=== PATIENT | female | born 1940 | race Caucasian/White ===

== ENCOUNTER 2016-11-23 17:22 | Inpatient (IN) | payer MEDICARE, OTHER ==
[2016-11-23] MEDS ORDERED: SODIUM CHLORIDE 0.9% 1,000 ML IV ONE (18:04)
[2016-11-23] MEDS ORDERED: OSELTAMIVIR 75 MG CAPSULE PO STA (19:39)
[2016-11-23] MEDS ORDERED: OSELTAMIVIR 75 MG CAPSULE PO ONE (19:44)
[2016-11-23] MEDS ORDERED: HALOPERIDOL 5 MG/ML VIAL IM SCH (23:07)
[2016-11-23] MEDS ORDERED: ONDANSETRON ODT 4 MG TABLET TL PRN (23:07)
[2016-11-23] MEDS ORDERED: PROCHLORPERAZINE 10 MG/2 ML VIAL IVP PRN (23:07)
[2016-11-23] MEDS ORDERED: ACETAMINOPHEN 325 MG TABLET PO PRN (23:07)
[2016-11-23] MEDS ORDERED: ONDANSETRON 4 MG/2 ML VIAL IVP PRN (23:07)
[2016-11-24] MEDS: SODIUM CHLORIDE 0.9% 1,000 ML IV SCH ×2 (00:05→02:18)
[2016-11-24] MEDS: MIRTAZAPINE 15 MG TABLET PO SCH ×2 (00:05→22:05)
[2016-11-24] MEDS: GABAPENTIN 300 MG CAPSULE PO SCH ×4 (00:05→22:06)
[2016-11-24] MEDS: NORTRIPTYLINE 10 MG CAPSULE PO SCH ×2 (00:06→22:05)
[2016-11-24] MEDS: LOSARTAN 50 MG TABLET PO SCH ×3 (00:06→22:05)
[2016-11-24] MEDS: SODIUM CHLORIDE FLUSH 0.9% 10 ML SYRINGE IVP SCH ×4 (00:10→22:07)
[2016-11-24] MEDS: ALBUTEROL NEB 2.5 MG/3 ML INH SCH ×6 (01:31→23:12)
[2016-11-24] MEDS: AZITHROMYCIN INJ 500 MG in SODIUM CHLORIDE 0.9% 250 ML IV SCH (08:27)
[2016-11-24] MEDS: cefTRIAXone 2 GM in SODIUM CHLORIDE 0.9% MINIBAG 100 ML IV SCH (08:27)
[2016-11-24] MEDS: ASCORBIC ACID CHEW 500 MG TABLET PO SCH (08:28)
[2016-11-24] MEDS: ATORVASTATIN 40 MG TABLET PO SCH (08:28)
[2016-11-24] MEDS: METOPROLOL TARTRATE 50 MG TABLET PO SCH ×2 (08:28→22:06)
[2016-11-24] MEDS: OSELTAMIVIR 75 MG CAPSULE PO SCH ×3 (08:29→22:07)
[2016-11-24] MEDS: SACCHAROMYCES BOULARDII 250 MG CAPSULE PO SCH ×2 (08:29→16:38)
[2016-11-24] MEDS: POTASSIUM CHLORIDE 20 MEQ TABLET PO SCH (08:29)
[2016-11-24] MEDS: ASPIRIN EC 81 MG TABLET PO SCH (08:29)
[2016-11-24] MEDS: CHOLECALCIFEROL 1,000 UNIT TABLET PO SCH (08:29)
[2016-11-24] MEDS: amLODIPine 5 MG TABLET PO SCH (08:42)
[2016-11-24] MEDS: POLYETHYLENE GLYCOL 3350 17 GM PACKET PO SCH (08:42)
[2016-11-24] MEDS ORDERED: METOPROLOL TARTRATE 50 MG TABLET PO SCH (09:00)
[2016-11-24] MEDS: HYDROcod/ACETAM 10 MG/325 MG TABLET PO PRN (16:38)
[2016-11-24] MEDS ORDERED: risperiDONE 1 MG/ML SOLUTION PO SCH (21:00)
[2016-11-24] MEDS: risperiDONE 0.25 MG TABLET PO SCH (22:06)
[2016-11-25] MEDS: HYDROcod/ACETAM 10 MG/325 MG TABLET PO PRN (00:54)
[2016-11-25] MEDS: GABAPENTIN 300 MG CAPSULE PO SCH ×3 (07:04→21:28)
[2016-11-25] MEDS: SODIUM CHLORIDE FLUSH 0.9% 10 ML SYRINGE IVP SCH ×3 (07:06→21:28)
[2016-11-25] MEDS: cefTRIAXone 2 GM in SODIUM CHLORIDE 0.9% MINIBAG 100 ML IV SCH (09:01)
[2016-11-25] MEDS: ASCORBIC ACID CHEW 500 MG TABLET PO SCH (09:02)
[2016-11-25] MEDS: METOPROLOL TARTRATE 50 MG TABLET PO SCH ×2 (09:02→20:20)
[2016-11-25] MEDS: AZITHROMYCIN INJ 500 MG in SODIUM CHLORIDE 0.9% 250 ML IV SCH (09:02)
[2016-11-25] MEDS: ATORVASTATIN 40 MG TABLET PO SCH (09:05)
[2016-11-25] MEDS: CHOLECALCIFEROL 1,000 UNIT TABLET PO SCH (09:05)
[2016-11-25] MEDS: amLODIPine 5 MG TABLET PO SCH (09:05)
[2016-11-25] MEDS: ASPIRIN EC 81 MG TABLET PO SCH (09:05)
[2016-11-25] MEDS: POTASSIUM CHLORIDE 20 MEQ TABLET PO SCH (09:05)
[2016-11-25] MEDS: SACCHAROMYCES BOULARDII 250 MG CAPSULE PO SCH ×2 (09:05→16:38)
[2016-11-25] MEDS: LOSARTAN 50 MG TABLET PO SCH ×2 (09:05→20:27)
[2016-11-25] MEDS: POLYETHYLENE GLYCOL 3350 17 GM PACKET PO SCH (09:05)
[2016-11-25] MEDS: CIPROFLOXACIN 250 MG TABLET PO SCH ×2 (13:12→20:20)
[2016-11-25] MEDS: HYDROcod/ACETAM 5/325 MG TABLET PO PRN ×2 (16:38→20:22)
[2016-11-25] MEDS: OSELTAMIVIR 75 MG CAPSULE PO SCH (20:19)
[2016-11-25] MEDS: NORTRIPTYLINE 10 MG CAPSULE PO SCH (20:20)
[2016-11-25] MEDS: risperiDONE 0.25 MG TABLET PO SCH (20:21)
[2016-11-25] MEDS: MIRTAZAPINE 15 MG TABLET PO SCH (20:27)
[2016-11-26] MEDS: SODIUM CHLORIDE FLUSH 0.9% 10 ML SYRINGE IVP SCH ×3 (06:05→20:53)
[2016-11-26] MEDS: GABAPENTIN 300 MG CAPSULE PO SCH ×3 (06:18→21:04)
[2016-11-26] MEDS: amLODIPine 5 MG TABLET PO SCH (08:58)
[2016-11-26] MEDS: SACCHAROMYCES BOULARDII 250 MG CAPSULE PO SCH ×2 (08:58→16:53)
[2016-11-26] MEDS: POTASSIUM CHLORIDE 20 MEQ TABLET PO SCH (08:58)
[2016-11-26] MEDS: ASPIRIN EC 81 MG TABLET PO SCH (08:59)
[2016-11-26] MEDS: CHOLECALCIFEROL 1,000 UNIT TABLET PO SCH (08:59)
[2016-11-26] MEDS: CIPROFLOXACIN 250 MG TABLET PO SCH (08:59)
[2016-11-26] MEDS: ASCORBIC ACID CHEW 500 MG TABLET PO SCH (08:59)
[2016-11-26] MEDS: ATORVASTATIN 40 MG TABLET PO SCH (08:59)
[2016-11-26] MEDS: OSELTAMIVIR 75 MG CAPSULE PO SCH ×2 (09:00→20:52)
[2016-11-26] MEDS: POLYETHYLENE GLYCOL 3350 17 GM PACKET PO SCH (09:00)
[2016-11-26] MEDS: LOSARTAN 50 MG TABLET PO SCH ×2 (09:00→20:52)
[2016-11-26] MEDS ORDERED: AZITHROMYCIN 250 MG TABLET PO SCH (09:00)
[2016-11-26] MEDS: METOPROLOL TARTRATE 50 MG TABLET PO SCH ×2 (09:03→20:52)
[2016-11-26] MEDS: HYDROcod/ACETAM 5/325 MG TABLET PO PRN ×2 (09:11→14:31)
[2016-11-26] MEDS: IPRATROPIUM/ALBUTEROL 3 ML NEB INH PRN (10:29)
[2016-11-26] MEDS: NORTRIPTYLINE 10 MG CAPSULE PO SCH (20:52)
[2016-11-26] MEDS: risperiDONE 0.25 MG TABLET PO SCH (20:52)
[2016-11-26] MEDS: MIRTAZAPINE 15 MG TABLET PO SCH (20:52)
[2016-11-26] MEDS: HYDROcod/ACETAM 10 MG/325 MG TABLET PO PRN (23:32)
[2016-11-27] MEDS: SODIUM CHLORIDE FLUSH 0.9% 10 ML SYRINGE IVP SCH ×3 (06:35→20:12)
[2016-11-27] MEDS: GABAPENTIN 300 MG CAPSULE PO SCH ×3 (06:35→21:17)
[2016-11-27] MEDS: POTASSIUM CHLORIDE 20 MEQ TABLET PO SCH (08:58)
[2016-11-27] MEDS: ATORVASTATIN 40 MG TABLET PO SCH (08:59)
[2016-11-27] MEDS: SACCHAROMYCES BOULARDII 250 MG CAPSULE PO SCH ×2 (08:59→16:15)
[2016-11-27] MEDS: CHOLECALCIFEROL 1,000 UNIT TABLET PO SCH (08:59)
[2016-11-27] MEDS: ASPIRIN EC 81 MG TABLET PO SCH (08:59)
[2016-11-27] MEDS: ASCORBIC ACID CHEW 500 MG TABLET PO SCH (08:59)
[2016-11-27] MEDS: amLODIPine 5 MG TABLET PO SCH (08:59)
[2016-11-27] MEDS: POLYETHYLENE GLYCOL 3350 17 GM PACKET PO SCH (09:00)
[2016-11-27] MEDS: OSELTAMIVIR 75 MG CAPSULE PO SCH ×2 (09:00→20:12)
[2016-11-27] MEDS: METOPROLOL TARTRATE 50 MG TABLET PO SCH ×2 (09:00→20:12)
[2016-11-27] MEDS: LOSARTAN 50 MG TABLET PO SCH ×2 (09:00→20:11)
[2016-11-27] MEDS: SODIUM CHLORIDE FLUSH 0.9% 10 ML SYRINGE IVP PRN (12:09)
[2016-11-27] MEDS: guaiFENesin/CODEINE 5 ML UDC PO PRN ×2 (15:00→20:17)
[2016-11-27] MEDS: IPRATROPIUM/ALBUTEROL 3 ML NEB INH PRN (16:00)
[2016-11-27] MEDS: HYDROcod/ACETAM 5/325 MG TABLET PO PRN (18:43)
[2016-11-27] MEDS: risperiDONE 0.25 MG TABLET PO SCH (20:12)
[2016-11-27] MEDS: MIRTAZAPINE 15 MG TABLET PO SCH (20:12)
[2016-11-27] MEDS: NORTRIPTYLINE 10 MG CAPSULE PO SCH (20:12)
[2016-11-27] MEDS: SODIUM CHLORIDE 0.9% 1,000 ML IV SCH (20:44)
[2016-11-28] MEDS: SODIUM CHLORIDE 0.9% 1,000 ML IV SCH ×3 (04:22→22:39)
[2016-11-28] MEDS: GABAPENTIN 300 MG CAPSULE PO SCH ×3 (05:56→21:37)
[2016-11-28] MEDS: SODIUM CHLORIDE FLUSH 0.9% 10 ML SYRINGE IVP SCH ×3 (06:02→21:41)
[2016-11-28] MEDS: ASCORBIC ACID CHEW 500 MG TABLET PO SCH (08:59)
[2016-11-28] MEDS: ASPIRIN EC 81 MG TABLET PO SCH (08:59)
[2016-11-28] MEDS: POTASSIUM CHLORIDE 20 MEQ TABLET PO SCH (08:59)
[2016-11-28] MEDS: SACCHAROMYCES BOULARDII 250 MG CAPSULE PO SCH ×2 (08:59→16:18)
[2016-11-28] MEDS: ATORVASTATIN 40 MG TABLET PO SCH (08:59)
[2016-11-28] MEDS: OSELTAMIVIR 75 MG CAPSULE PO SCH ×2 (09:00→21:37)
[2016-11-28] MEDS: CHOLECALCIFEROL 1,000 UNIT TABLET PO SCH (09:00)
[2016-11-28] MEDS: POLYETHYLENE GLYCOL 3350 17 GM PACKET PO SCH (09:00)
[2016-11-28] MEDS: LOSARTAN 50 MG TABLET PO SCH ×2 (09:01→21:36)
[2016-11-28] MEDS: amLODIPine 5 MG TABLET PO SCH (09:01)
[2016-11-28] MEDS: METOPROLOL TARTRATE 50 MG TABLET PO SCH ×2 (09:02→21:41)
[2016-11-28] MEDS: guaiFENesin/CODEINE 5 ML UDC PO PRN ×2 (09:03→20:08)
[2016-11-28] MEDS: IPRATROPIUM/ALBUTEROL 3 ML NEB INH PRN (15:45)
[2016-11-28] MEDS: HYDROcod/ACETAM 5/325 MG TABLET PO PRN (16:18)
[2016-11-28] MEDS: NORTRIPTYLINE 10 MG CAPSULE PO SCH (21:37)
[2016-11-28] MEDS: MIRTAZAPINE 15 MG TABLET PO SCH (21:38)
[2016-11-28] MEDS: risperiDONE 0.25 MG TABLET PO SCH (21:38)
[2016-11-28] MEDS: SENNA 8.6 MG TABLET PO SCH (21:41)
[2016-11-28] MEDS: HYDROcod/ACETAM 10 MG/325 MG TABLET PO PRN (21:57)
[2016-11-29] MEDS: SENNA 8.6 MG TABLET PO SCH ×2 (06:22→13:34)
[2016-11-29] MEDS: GABAPENTIN 300 MG CAPSULE PO SCH ×3 (06:22→21:57)
[2016-11-29] MEDS: SODIUM CHLORIDE 0.9% 1,000 ML IV SCH ×3 (07:19→21:57)
[2016-11-29] MEDS: SODIUM CHLORIDE FLUSH 0.9% 10 ML SYRINGE IVP SCH ×3 (07:19→21:59)
[2016-11-29] MEDS: amLODIPine 5 MG TABLET PO SCH (09:14)
[2016-11-29] MEDS: DOCUSATE SODIUM 250 MG CAPSULE PO SCH (09:14)
[2016-11-29] MEDS: SACCHAROMYCES BOULARDII 250 MG CAPSULE PO SCH ×2 (09:15→17:55)
[2016-11-29] MEDS: CHOLECALCIFEROL 1,000 UNIT TABLET PO SCH (09:15)
[2016-11-29] MEDS: ASPIRIN EC 81 MG TABLET PO SCH (09:15)
[2016-11-29] MEDS: LOSARTAN 50 MG TABLET PO SCH ×2 (09:16→21:57)
[2016-11-29] MEDS: POTASSIUM CHLORIDE 20 MEQ TABLET PO SCH (09:16)
[2016-11-29] MEDS: ATORVASTATIN 40 MG TABLET PO SCH (09:16)
[2016-11-29] MEDS: ASCORBIC ACID CHEW 500 MG TABLET PO SCH (09:17)
[2016-11-29] MEDS: METOPROLOL TARTRATE 50 MG TABLET PO SCH ×2 (09:17→21:57)
[2016-11-29] MEDS: POLYETHYLENE GLYCOL 3350 17 GM PACKET PO SCH (09:56)
[2016-11-29] MEDS: risperiDONE 0.25 MG TABLET PO SCH (21:57)
[2016-11-29] MEDS: NORTRIPTYLINE 10 MG CAPSULE PO SCH (21:58)
[2016-11-29] MEDS: MIRTAZAPINE 15 MG TABLET PO SCH (21:58)
[2016-11-29] MEDS ORDERED: LORazepam 2 MG/ML SYRINGE IVP STA (23:34)
[2016-11-30] MEDS ORDERED: HALOPERIDOL 5 MG/ML VIAL IM ONE (00:04)
[2016-11-30] MEDS ORDERED: HALOPERIDOL 5 MG/ML VIAL ONE (00:06)
[2016-11-30] MEDS ORDERED: HALOPERIDOL 5 MG/ML VIAL IM SCH (00:52)
[2016-11-30] MEDS: SODIUM CHLORIDE 0.9% 1,000 ML IV SCH ×3 (05:43→21:47)
[2016-11-30] MEDS: GABAPENTIN 300 MG CAPSULE PO SCH ×3 (06:45→21:45)
[2016-11-30] MEDS: SODIUM CHLORIDE FLUSH 0.9% 10 ML SYRINGE IVP SCH ×3 (06:47→21:45)
[2016-11-30] MEDS: IPRATROPIUM/ALBUTEROL 3 ML NEB INH PRN ×2 (09:33→16:56)
[2016-11-30] MEDS: FORMOTEROL FUMARATE NEB 20 MCG/2 ML INH SCH ×2 (09:33→16:56)
[2016-11-30] MEDS: BUDESONIDE 0.5 MG/2 ML NEB INH SCH ×2 (09:33→16:56)
[2016-11-30] MEDS: IPRATROPIUM 0.2 MG/ML NEB INH SCH ×3 (09:33→21:00)
[2016-11-30] MEDS: POLYETHYLENE GLYCOL 3350 17 GM PACKET PO SCH (10:07)
[2016-11-30] MEDS: DOCUSATE SODIUM 250 MG CAPSULE PO SCH (10:07)
[2016-11-30] MEDS: ASCORBIC ACID CHEW 500 MG TABLET PO SCH (10:08)
[2016-11-30] MEDS: LOSARTAN 50 MG TABLET PO SCH ×2 (10:08→20:12)
[2016-11-30] MEDS: amLODIPine 5 MG TABLET PO SCH (10:08)
[2016-11-30] MEDS: POTASSIUM CHLORIDE 20 MEQ TABLET PO SCH (10:08)
[2016-11-30] MEDS: ATORVASTATIN 40 MG TABLET PO SCH (10:09)
[2016-11-30] MEDS: CHOLECALCIFEROL 1,000 UNIT TABLET PO SCH (10:09)
[2016-11-30] MEDS: SACCHAROMYCES BOULARDII 250 MG CAPSULE PO SCH ×2 (10:09→16:33)
[2016-11-30] MEDS: METOPROLOL TARTRATE 50 MG TABLET PO SCH ×2 (10:09→20:12)
[2016-11-30] MEDS: ASPIRIN EC 81 MG TABLET PO SCH (10:09)
[2016-11-30] MEDS ORDERED: MIN OIL/DIMETHICON/COCONUT OIL 92 GM TUBE TOP ONE (14:06)
[2016-11-30] MEDS ORDERED: ZINC OXIDE 20% OINT 28.35 GM TUBE TOP ONE (14:07)
[2016-11-30] MEDS: NORTRIPTYLINE 10 MG CAPSULE PO SCH (20:12)
[2016-11-30] MEDS: risperiDONE 0.25 MG TABLET PO SCH (20:12)
[2016-11-30] MEDS: MIRTAZAPINE 15 MG TABLET PO SCH (20:13)
[2016-12-01] MEDS: guaiFENesin/CODEINE 5 ML UDC PO PRN (04:36)
[2016-12-01] MEDS: GABAPENTIN 300 MG CAPSULE PO SCH ×3 (06:12→21:38)
[2016-12-01] MEDS: IPRATROPIUM 0.2 MG/ML NEB INH SCH ×3 (07:03→20:35)
[2016-12-01] MEDS: BUDESONIDE 0.5 MG/2 ML NEB INH SCH ×2 (08:10→20:35)
[2016-12-01] MEDS: IPRATROPIUM/ALBUTEROL 3 ML NEB INH PRN ×2 (08:10→14:00)
[2016-12-01] MEDS: FORMOTEROL FUMARATE NEB 20 MCG/2 ML INH SCH ×2 (08:10→20:35)
[2016-12-01] MEDS ORDERED: SENNA 8.6 MG TABLET PO ONE (08:30)
[2016-12-01] MEDS: SODIUM CHLORIDE 0.9% 1,000 ML IV SCH ×3 (08:38→19:15)
[2016-12-01] MEDS: DOCUSATE SODIUM 250 MG CAPSULE PO SCH (09:05)
[2016-12-01] MEDS: ASCORBIC ACID CHEW 500 MG TABLET PO SCH (09:06)
[2016-12-01] MEDS: POTASSIUM CHLORIDE 20 MEQ TABLET PO SCH (09:06)
[2016-12-01] MEDS: ASPIRIN EC 81 MG TABLET PO SCH (09:06)
[2016-12-01] MEDS: LOSARTAN 50 MG TABLET PO SCH ×2 (09:06→20:36)
[2016-12-01] MEDS: CHOLECALCIFEROL 1,000 UNIT TABLET PO SCH (09:06)
[2016-12-01] MEDS: ATORVASTATIN 40 MG TABLET PO SCH (09:07)
[2016-12-01] MEDS: SACCHAROMYCES BOULARDII 250 MG CAPSULE PO SCH ×2 (09:07→18:21)
[2016-12-01] MEDS: amLODIPine 5 MG TABLET PO SCH (09:07)
[2016-12-01] MEDS: POLYETHYLENE GLYCOL 3350 17 GM PACKET PO SCH (09:08)
[2016-12-01] MEDS: METOPROLOL TARTRATE 50 MG TABLET PO SCH ×2 (09:08→20:36)
[2016-12-01] MEDS: SODIUM CHLORIDE FLUSH 0.9% 10 ML SYRINGE IVP SCH ×3 (09:09→22:58)
[2016-12-01] MEDS: HYDROcod/ACETAM 10 MG/325 MG TABLET PO PRN ×2 (12:05→21:38)
[2016-12-01] MEDS: FUROSEMIDE 20 MG/2 ML VIAL IVP SCH (15:40)
[2016-12-01] MEDS: MIRTAZAPINE 15 MG TABLET PO SCH (20:35)
[2016-12-01] MEDS: NORTRIPTYLINE 10 MG CAPSULE PO SCH (20:35)
[2016-12-01] MEDS: risperiDONE 0.25 MG TABLET PO SCH (20:36)
[2016-12-02] MEDS: guaiFENesin/CODEINE 5 ML UDC PO PRN ×3 (00:44→18:17)
[2016-12-02] MEDS: SODIUM CHLORIDE 0.9% 1,000 ML IV SCH ×3 (03:17→22:49)
[2016-12-02] MEDS: IPRATROPIUM 0.2 MG/ML NEB INH SCH (04:05)
[2016-12-02] MEDS: GABAPENTIN 300 MG CAPSULE PO SCH ×3 (05:22→21:22)
[2016-12-02] MEDS: ZINC OXIDE 20% OINT 28.35 GM TUBE TOP PRN (05:31)
[2016-12-02] MEDS: SODIUM CHLORIDE FLUSH 0.9% 10 ML SYRINGE IVP SCH ×3 (05:49→22:49)
[2016-12-02] MEDS: FUROSEMIDE 20 MG/2 ML VIAL IVP SCH ×2 (06:54→13:17)
[2016-12-02] MEDS: POLYETHYLENE GLYCOL 3350 17 GM PACKET PO SCH (08:28)
[2016-12-02] MEDS: CHOLECALCIFEROL 1,000 UNIT TABLET PO SCH (08:29)
[2016-12-02] MEDS: DOCUSATE SODIUM 250 MG CAPSULE PO SCH (08:29)
[2016-12-02] MEDS: ASPIRIN EC 81 MG TABLET PO SCH (08:29)
[2016-12-02] MEDS: POTASSIUM CHLORIDE 20 MEQ TABLET PO SCH (08:29)
[2016-12-02] MEDS: METOPROLOL TARTRATE 50 MG TABLET PO SCH ×2 (08:29→21:20)
[2016-12-02] MEDS: amLODIPine 5 MG TABLET PO SCH (08:30)
[2016-12-02] MEDS: HYDROcod/ACETAM 10 MG/325 MG TABLET PO PRN ×3 (08:30→18:16)
[2016-12-02] MEDS: SACCHAROMYCES BOULARDII 250 MG CAPSULE PO SCH ×2 (08:41→16:32)
[2016-12-02] MEDS: ATORVASTATIN 40 MG TABLET PO SCH (08:46)
[2016-12-02] MEDS: LOSARTAN 50 MG TABLET PO SCH ×2 (08:47→21:22)
[2016-12-02] MEDS: ASCORBIC ACID CHEW 500 MG TABLET PO SCH (08:47)
[2016-12-02] MEDS: FORMOTEROL FUMARATE NEB 20 MCG/2 ML INH SCH ×2 (09:00→19:45)
[2016-12-02] MEDS: BUDESONIDE 0.5 MG/2 ML NEB INH SCH ×2 (09:00→19:45)
[2016-12-02] MEDS: IPRATROPIUM/ALBUTEROL 3 ML NEB INH PRN ×2 (09:00→12:50)
[2016-12-02] MEDS: CEFEPIME 2 GM in SODIUM CHLORIDE 0.9% MINIBAG 100 ML IV SCH ×2 (11:57→22:49)
[2016-12-02] MEDS: POTASSIUM CHLORIDE 10 MEQ CAPSULE PO SCH (16:33)
[2016-12-02] MEDS ORDERED: POTASSIUM CHLORIDE 10 MEQ CAPSULE PO SCH (17:00)
[2016-12-02] MEDS: risperiDONE 0.25 MG TABLET PO SCH (21:18)
[2016-12-02] MEDS: NORTRIPTYLINE 10 MG CAPSULE PO SCH (21:18)
[2016-12-02] MEDS: MIRTAZAPINE 15 MG TABLET PO SCH (21:19)
[2016-12-03] MEDS: guaiFENesin/CODEINE 5 ML UDC PO PRN (01:26)
[2016-12-03] MEDS: NYSTATIN CREAM 15 GM TUBE TOP SCH ×4 (01:26→23:38)
[2016-12-03] MEDS: SODIUM CHLORIDE 0.9% 1,000 ML IV SCH ×3 (02:29→23:10)
[2016-12-03] MEDS: SODIUM CHLORIDE FLUSH 0.9% 10 ML SYRINGE IVP SCH ×3 (06:33→23:10)
[2016-12-03] MEDS: GABAPENTIN 300 MG CAPSULE PO SCH ×3 (06:44→22:31)
[2016-12-03] MEDS: FUROSEMIDE 20 MG/2 ML VIAL IVP SCH ×2 (06:45→13:41)
[2016-12-03] MEDS: FORMOTEROL FUMARATE NEB 20 MCG/2 ML INH SCH ×2 (07:12→21:10)
[2016-12-03] MEDS: BUDESONIDE 0.5 MG/2 ML NEB INH SCH ×2 (07:12→21:10)
[2016-12-03] MEDS: IPRATROPIUM/ALBUTEROL 3 ML NEB INH PRN ×2 (07:12→21:10)
[2016-12-03] MEDS ORDERED: ACETAMINOPHEN 650 MG SUPP PR PRN (08:24)
[2016-12-03] MEDS: CEFEPIME 2 GM in SODIUM CHLORIDE 0.9% MINIBAG 100 ML IV SCH ×2 (08:31→21:03)
[2016-12-03] MEDS: ATORVASTATIN 40 MG TABLET PO SCH (13:46)
[2016-12-03] MEDS: ASCORBIC ACID CHEW 500 MG TABLET PO SCH (13:46)
[2016-12-03] MEDS: CHOLECALCIFEROL 1,000 UNIT TABLET PO SCH (13:46)
[2016-12-03] MEDS: SACCHAROMYCES BOULARDII 250 MG CAPSULE PO SCH ×2 (13:46→18:10)
[2016-12-03] MEDS: ASPIRIN EC 81 MG TABLET PO SCH (13:46)
[2016-12-03] MEDS: amLODIPine 5 MG TABLET PO SCH (13:46)
[2016-12-03] MEDS: POTASSIUM CHLORIDE 10 MEQ CAPSULE PO SCH ×2 (13:46→18:10)
[2016-12-03] MEDS: POLYETHYLENE GLYCOL 3350 17 GM PACKET PO SCH (13:47)
[2016-12-03] MEDS: LOSARTAN 50 MG TABLET PO SCH ×2 (13:47→22:29)
[2016-12-03] MEDS: DOCUSATE SODIUM 250 MG CAPSULE PO SCH (13:47)
[2016-12-03] MEDS: METOPROLOL TARTRATE 50 MG TABLET PO SCH ×2 (13:47→22:29)
[2016-12-03] MEDS: ZINC OXIDE 20% OINT 28.35 GM TUBE TOP PRN (13:51)
[2016-12-03] MEDS: METOPROLOL 5 MG/5 ML VIAL IVP PRN ×2 (17:49→23:58)
[2016-12-03] MEDS ORDERED: HALOPERIDOL 5 MG/ML VIAL IM ONE (19:00)
[2016-12-03] MEDS: MIRTAZAPINE 15 MG TABLET PO SCH (22:30)
[2016-12-03] MEDS: NORTRIPTYLINE 10 MG CAPSULE PO SCH (22:31)
[2016-12-03] MEDS: risperiDONE 0.25 MG TABLET PO SCH (22:31)
[2016-12-03] MEDS ORDERED: FUROSEMIDE 40 MG/4 ML VIAL IVP STA (22:36)
[2016-12-03] MEDS ORDERED: MAGNESIUM SULFATE 5 GM/10 ML VIAL IV STA (23:28)
[2016-12-03] MEDS: MAGNESIUM SULFATE 2 GRAM 50 ML IV SCH (23:43)
[2016-12-03] MEDS: SODIUM CHLORIDE FLUSH 0.9% 10 ML SYRINGE IVP PRN (23:58)
[2016-12-04] MEDS: guaiFENesin/CODEINE 5 ML UDC PO PRN (00:01)
[2016-12-04] MEDS: MAGNESIUM SULFATE 2 GRAM 50 ML IV SCH (01:11)
[2016-12-04] MEDS ORDERED: PIPERACILLIN/TAZOBACTAM 4.5 GM in SODIUM CHLORIDE 0.9% MINIBAG 100 ML IV SCH ×5 (02:30→06:00)
[2016-12-04] MEDS ORDERED: VANCOMYCIN INJ 1 GM in SODIUM CHLORIDE 0.9% 250 ML IV SCH (03:00)
[2016-12-04] MEDS ORDERED: VANCOMYCIN PER PHARMACY 1 GM in SODIUM CHLORIDE 0.9% 250 ML IV SCH (03:00)
[2016-12-04] MEDS ORDERED: IOPAMIDOL-300 100 ML VIAL IVP ONE (03:11)
[2016-12-04] MEDS: SENNA 8.6 MG TABLET PO SCH ×3 (06:14→22:03)
[2016-12-04] MEDS: GABAPENTIN 300 MG CAPSULE PO SCH ×3 (06:14→21:52)
[2016-12-04] MEDS: SODIUM CHLORIDE FLUSH 0.9% 10 ML SYRINGE IVP SCH ×3 (06:14→19:36)
[2016-12-04] MEDS: FUROSEMIDE 20 MG/2 ML VIAL IVP SCH ×2 (06:28→13:37)
[2016-12-04] MEDS: NYSTATIN CREAM 15 GM TUBE TOP SCH ×3 (06:29→21:51)
[2016-12-04] MEDS: DOCUSATE SODIUM 250 MG CAPSULE PO SCH ×2 (08:43→09:25)
[2016-12-04] MEDS: ASPIRIN EC 81 MG TABLET PO SCH (08:43)
[2016-12-04] MEDS: ATORVASTATIN 40 MG TABLET PO SCH (08:43)
[2016-12-04] MEDS: ASCORBIC ACID CHEW 500 MG TABLET PO SCH (08:44)
[2016-12-04] MEDS: METOPROLOL TARTRATE 50 MG TABLET PO SCH ×2 (08:44→21:52)
[2016-12-04] MEDS: amLODIPine 5 MG TABLET PO SCH (08:44)
[2016-12-04] MEDS: LOSARTAN 50 MG TABLET PO SCH ×2 (08:44→21:52)
[2016-12-04] MEDS: POTASSIUM CHLORIDE 10 MEQ CAPSULE PO SCH ×2 (09:24→19:37)
[2016-12-04] MEDS: CHOLECALCIFEROL 1,000 UNIT TABLET PO SCH (09:25)
[2016-12-04] MEDS: SACCHAROMYCES BOULARDII 250 MG CAPSULE PO SCH ×2 (09:25→19:37)
[2016-12-04] MEDS: POLYETHYLENE GLYCOL 3350 17 GM PACKET PO SCH (09:25)
[2016-12-04] MEDS: FORMOTEROL FUMARATE NEB 20 MCG/2 ML INH SCH ×2 (09:32→20:58)
[2016-12-04] MEDS: IPRATROPIUM/ALBUTEROL 3 ML NEB INH PRN (09:32)
[2016-12-04] MEDS: BUDESONIDE 0.5 MG/2 ML NEB INH SCH ×2 (09:33→20:58)
[2016-12-04] MEDS ORDERED: POTASSIUM CHLORIDE 20 MEQ TABLET PO STA (15:08)
[2016-12-04] MEDS: PIPERACILLIN/TAZOBACTAM 4.5 GM in SODIUM CHLORIDE 0.9% MINIBAG 100 ML IV SCH (19:37)
[2016-12-04] MEDS: VANCOMYCIN INJ 1 GM in SODIUM CHLORIDE 0.9% 250 ML IV SCH (21:51)
[2016-12-04] MEDS: risperiDONE 0.25 MG TABLET PO SCH (21:51)
[2016-12-04] MEDS: NORTRIPTYLINE 10 MG CAPSULE PO SCH (21:52)
[2016-12-04] MEDS: MIRTAZAPINE 15 MG TABLET PO SCH (21:53)
[2016-12-05] MEDS: SODIUM CHLORIDE 0.9% 1,000 ML IV SCH (00:38)
[2016-12-05] MEDS: PIPERACILLIN/TAZOBACTAM 4.5 GM in SODIUM CHLORIDE 0.9% MINIBAG 100 ML IV SCH ×4 (00:39→18:03)
[2016-12-05] MEDS: guaiFENesin/CODEINE 5 ML UDC PO PRN (01:55)
[2016-12-05] MEDS: NYSTATIN CREAM 15 GM TUBE TOP SCH ×3 (05:57→21:15)
[2016-12-05] MEDS: FUROSEMIDE 20 MG/2 ML VIAL IVP SCH ×2 (05:57→14:22)
[2016-12-05] MEDS: GABAPENTIN 300 MG CAPSULE PO SCH ×3 (05:58→21:15)
[2016-12-05] MEDS: SODIUM CHLORIDE FLUSH 0.9% 10 ML SYRINGE IVP SCH ×3 (05:59→21:15)
[2016-12-05] MEDS: ASCORBIC ACID CHEW 500 MG TABLET PO SCH (08:17)
[2016-12-05] MEDS: SACCHAROMYCES BOULARDII 250 MG CAPSULE PO SCH ×2 (08:18→18:04)
[2016-12-05] MEDS: POTASSIUM CHLORIDE 10 MEQ CAPSULE PO SCH ×2 (08:18→18:04)
[2016-12-05] MEDS: DOCUSATE SODIUM 250 MG CAPSULE PO SCH ×2 (08:18→08:19)
[2016-12-05] MEDS: CHOLECALCIFEROL 1,000 UNIT TABLET PO SCH (08:18)
[2016-12-05] MEDS: ASPIRIN EC 81 MG TABLET PO SCH (08:18)
[2016-12-05] MEDS: amLODIPine 5 MG TABLET PO SCH (08:18)
[2016-12-05] MEDS: ATORVASTATIN 40 MG TABLET PO SCH (08:19)
[2016-12-05] MEDS: LOSARTAN 50 MG TABLET PO SCH ×2 (08:19→21:15)
[2016-12-05] MEDS: METOPROLOL TARTRATE 50 MG TABLET PO SCH ×2 (08:19→21:14)
[2016-12-05] MEDS: POLYETHYLENE GLYCOL 3350 17 GM PACKET PO SCH (08:20)
[2016-12-05] MEDS ORDERED: SODIUM CHLORIDE 0.9% 500 ML IV ONE (09:00)
[2016-12-05] MEDS ORDERED: NS W/20 MEQ KCL 1,000 ML IV SCH (09:00)
[2016-12-05] MEDS ORDERED: POTASSIUM CHLORIDE 20 MEQ TABLET PO ONE (09:30)
[2016-12-05] MEDS: FORMOTEROL FUMARATE NEB 20 MCG/2 ML INH SCH ×2 (09:50→16:36)
[2016-12-05] MEDS: BUDESONIDE 0.5 MG/2 ML NEB INH SCH ×2 (09:50→16:36)
[2016-12-05] MEDS: IPRATROPIUM/ALBUTEROL 3 ML NEB INH PRN ×2 (09:50→14:00)
[2016-12-05] MEDS: HYDROcod/ACETAM 10 MG/325 MG TABLET PO PRN (12:51)
[2016-12-05] MEDS ORDERED: MIN OIL/DIMETHICON/COCONUT OIL 92 GM TUBE TOP ONE (13:31)
[2016-12-05] MEDS: VANCOMYCIN INJ 1 GM in SODIUM CHLORIDE 0.9% 250 ML IV SCH (15:50)
[2016-12-05] MEDS: risperiDONE 0.25 MG TABLET PO SCH (21:13)
[2016-12-05] MEDS: NORTRIPTYLINE 10 MG CAPSULE PO SCH (21:14)
[2016-12-05] MEDS: MIRTAZAPINE 15 MG TABLET PO SCH (21:14)
[2016-12-06] MEDS: GABAPENTIN 300 MG CAPSULE PO SCH ×3 (05:52→21:56)
[2016-12-06] MEDS: guaiFENesin/CODEINE 5 ML UDC PO PRN (05:52)
[2016-12-06] MEDS: FUROSEMIDE 40 MG TABLET PO SCH ×2 (05:52→13:57)
[2016-12-06] MEDS: SODIUM CHLORIDE FLUSH 0.9% 10 ML SYRINGE IVP SCH (05:53)
[2016-12-06] MEDS: NYSTATIN CREAM 15 GM TUBE TOP SCH ×3 (05:54→21:56)
[2016-12-06] MEDS: BUDESONIDE 0.5 MG/2 ML NEB INH SCH ×2 (07:59→19:00)
[2016-12-06] MEDS: IPRATROPIUM/ALBUTEROL 3 ML NEB INH PRN (07:59)
[2016-12-06] MEDS: FORMOTEROL FUMARATE NEB 20 MCG/2 ML INH SCH ×2 (07:59→19:00)
[2016-12-06] MEDS: POLYETHYLENE GLYCOL 3350 17 GM PACKET PO SCH ×3 (08:57→16:54)
[2016-12-06] MEDS: levoFLOXacin 250 MG TABLET PO SCH (09:00)
[2016-12-06] MEDS: ASCORBIC ACID CHEW 500 MG TABLET PO SCH ×3 (09:03→15:37)
[2016-12-06] MEDS: METOPROLOL TARTRATE 50 MG TABLET PO SCH ×2 (09:45→21:56)
[2016-12-06] MEDS: amLODIPine 5 MG TABLET PO SCH (10:29)
[2016-12-06] MEDS: POTASSIUM CHLORIDE 10 MEQ CAPSULE PO SCH ×2 (10:31→16:46)
[2016-12-06] MEDS: ATORVASTATIN 40 MG TABLET PO SCH (10:33)
[2016-12-06] MEDS: LOSARTAN 50 MG TABLET PO SCH ×2 (10:36→21:56)
[2016-12-06] MEDS: DOCUSATE SODIUM 250 MG CAPSULE PO SCH ×2 (10:37→12:16)
[2016-12-06] MEDS: ASPIRIN EC 81 MG TABLET PO SCH (10:39)
[2016-12-06] MEDS: SACCHAROMYCES BOULARDII 250 MG CAPSULE PO SCH ×2 (10:42→16:46)
[2016-12-06] MEDS: CHOLECALCIFEROL 1,000 UNIT TABLET PO SCH (10:46)
[2016-12-06] MEDS: NEUTRA-PHOS 250 MG TABLET PO SCH ×2 (13:57→16:46)
[2016-12-06] MEDS: NORTRIPTYLINE 10 MG CAPSULE PO SCH (21:56)
[2016-12-06] MEDS: risperiDONE 0.25 MG TABLET PO SCH (21:56)
[2016-12-06] MEDS: MIRTAZAPINE 15 MG TABLET PO SCH (21:56)
[2016-12-07] MEDS: GABAPENTIN 300 MG CAPSULE PO SCH ×3 (05:19→21:23)
[2016-12-07] MEDS: guaiFENesin/CODEINE 5 ML UDC PO PRN (05:19)
[2016-12-07] MEDS: FUROSEMIDE 40 MG TABLET PO SCH ×2 (06:42→12:55)
[2016-12-07] MEDS: NYSTATIN CREAM 15 GM TUBE TOP SCH ×3 (06:43→21:24)
[2016-12-07] MEDS: NEUTRA-PHOS 250 MG TABLET PO SCH ×3 (07:51→18:38)
[2016-12-07] MEDS: POLYETHYLENE GLYCOL 3350 17 GM PACKET PO SCH (07:51)
[2016-12-07] MEDS: METOPROLOL TARTRATE 50 MG TABLET PO SCH ×2 (07:52→20:32)
[2016-12-07] MEDS: DOCUSATE SODIUM 250 MG CAPSULE PO SCH ×2 (07:52)
[2016-12-07] MEDS: ASPIRIN EC 81 MG TABLET PO SCH (07:53)
[2016-12-07] MEDS: levoFLOXacin 250 MG TABLET PO SCH (07:53)
[2016-12-07] MEDS: ATORVASTATIN 40 MG TABLET PO SCH (07:53)
[2016-12-07] MEDS: SACCHAROMYCES BOULARDII 250 MG CAPSULE PO SCH ×2 (07:53→18:38)
[2016-12-07] MEDS: CHOLECALCIFEROL 1,000 UNIT TABLET PO SCH (07:53)
[2016-12-07] MEDS: POTASSIUM CHLORIDE 10 MEQ CAPSULE PO SCH ×2 (07:54→18:38)
[2016-12-07] MEDS: amLODIPine 5 MG TABLET PO SCH (07:54)
[2016-12-07] MEDS: ASCORBIC ACID CHEW 500 MG TABLET PO SCH (07:54)
[2016-12-07] MEDS: LOSARTAN 50 MG TABLET PO SCH ×2 (07:54→20:31)
[2016-12-07] MEDS: FORMOTEROL FUMARATE NEB 20 MCG/2 ML INH SCH ×2 (09:30→20:45)
[2016-12-07] MEDS: BUDESONIDE 0.5 MG/2 ML NEB INH SCH ×2 (09:30→20:45)
[2016-12-07] MEDS: HYDROcod/ACETAM 5/325 MG TABLET PO PRN ×2 (13:17→18:38)
[2016-12-07] MEDS: IPRATROPIUM/ALBUTEROL 3 ML NEB INH PRN (13:59)
[2016-12-07] MEDS: MIRTAZAPINE 15 MG TABLET PO SCH (20:31)
[2016-12-07] MEDS: risperiDONE 0.25 MG TABLET PO SCH (20:31)
[2016-12-07] MEDS: NORTRIPTYLINE 10 MG CAPSULE PO SCH (20:33)
[2016-12-08] MEDS: NYSTATIN CREAM 15 GM TUBE TOP SCH (06:46)
[2016-12-08] MEDS: GABAPENTIN 300 MG CAPSULE PO SCH (06:46)
[2016-12-08] MEDS: FUROSEMIDE 40 MG TABLET PO SCH (06:46)
[2016-12-08] MEDS: IPRATROPIUM/ALBUTEROL 3 ML NEB INH PRN (07:27)
[2016-12-08] MEDS: FORMOTEROL FUMARATE NEB 20 MCG/2 ML INH SCH (07:27)
[2016-12-08] MEDS: BUDESONIDE 0.5 MG/2 ML NEB INH SCH (07:27)
[2016-12-08] MEDS: levoFLOXacin 250 MG TABLET PO SCH (10:20)
[2016-12-08] MEDS: POTASSIUM CHLORIDE 10 MEQ CAPSULE PO SCH ×2 (10:20→11:04)
[2016-12-08] MEDS: ATORVASTATIN 40 MG TABLET PO SCH ×2 (10:20→11:05)
[2016-12-08] MEDS: ASCORBIC ACID CHEW 500 MG TABLET PO SCH ×2 (10:20→11:05)
[2016-12-08] MEDS: DOCUSATE SODIUM 250 MG CAPSULE PO SCH (10:20)
[2016-12-08] MEDS: ASPIRIN EC 81 MG TABLET PO SCH ×2 (10:20→11:05)
[2016-12-08] MEDS: METOPROLOL TARTRATE 50 MG TABLET PO SCH (10:21)
[2016-12-08] MEDS: SACCHAROMYCES BOULARDII 250 MG CAPSULE PO SCH ×2 (10:21→11:05)
[2016-12-08] MEDS: NEUTRA-PHOS 250 MG TABLET PO SCH ×2 (10:21→11:04)
[2016-12-08] MEDS: LOSARTAN 50 MG TABLET PO SCH ×2 (10:21→11:05)
[2016-12-08] MEDS: amLODIPine 5 MG TABLET PO SCH (10:21)
[2016-12-08] MEDS: CHOLECALCIFEROL 1,000 UNIT TABLET PO SCH ×2 (10:21→11:05)
[2016-12-08] MEDS: POLYETHYLENE GLYCOL 3350 17 GM PACKET PO SCH (10:22)
== END 2016-12-08 11:30 | DRG 865 ==
DX: J10.81 Influenza due to other identified influenza virus with encephalopathy (principal); J10.00 Influenza due to other identified influenza virus with unspecified type of pneumonia; J44.9 Chronic obstructive pulmonary disease, unspecified; E78.00 Pure hypercholesterolemia, unspecified; J12.9 Viral pneumonia, unspecified; J18.9 Pneumonia, unspecified organism; K21.9 Gastro-esophageal reflux disease without esophagitis; J10.08 Influenza due to other identified influenza virus with other specified pneumonia; F41.9 Anxiety disorder, unspecified; M19.90 Unspecified osteoarthritis, unspecified site; J44.0 Chronic obstructive pulmonary disease with (acute) lower respiratory infection; J44.1 Chronic obstructive pulmonary disease with (acute) exacerbation; Z79.82 Long term (current) use of aspirin; Z79.51 Long term (current) use of inhaled steroids; Z79.899 Other long term (current) drug therapy; N39.0 Urinary tract infection, site not specified; R44.3 Hallucinations, unspecified; B96.89 Other specified bacterial agents as the cause of diseases classified elsewhere; Y95 Nosocomial condition; E87.6 Hypokalemia; R00.0 Tachycardia, unspecified; I25.10 Atherosclerotic heart disease of native coronary artery without angina pectoris; Z95.5 Presence of coronary angioplasty implant and graft; I73.9 Peripheral vascular disease, unspecified; G89.29 Other chronic pain; M54.9 Dorsalgia, unspecified; F01.50 Vascular dementia, unspecified severity, without behavioral disturbance, psychotic disturbance, mood disturbance, and anxiety; M85.80 Other specified disorders of bone density and structure, unspecified site; I10 Essential (primary) hypertension; E78.5 Hyperlipidemia, unspecified; G62.9 Polyneuropathy, unspecified; F32.9 Major depressive disorder, single episode, unspecified; R41.3 Other amnesia; Z91.14 Patient's other noncompliance with medication regimen; E83.42 Hypomagnesemia; E83.39 Other disorders of phosphorus metabolism; R94.2 Abnormal results of pulmonary function studies; Z99.81 Dependence on supplemental oxygen; Z87.891 Personal history of nicotine dependence

== ENCOUNTER 2016-12-08 | Outpatient (CLI) | payer MEDICARE, OTHER | END 2016-12-08 23:59 | CPT/HCPCS: A0425; A0428 ==

== ENCOUNTER 2017-01-09 | Outpatient (CLI) | payer MEDICARE, OTHER | END 2017-01-09 13:34 | disposition critical access hospital (66) | DX: R06.00 Dyspnea, unspecified (principal) | CPT/HCPCS: A0425; A0427 ==

== ENCOUNTER 2017-01-09 13:50 | Inpatient (IN) | payer MEDICARE, OTHER ==
[2017-01-09] MEDS ORDERED: DEXAMETHASONE 10 MG/ML VIAL IVP STA (14:32)
[2017-01-09] MEDS ORDERED: IPRATROPIUM/ALBUTEROL 3 ML NEB INH STA (14:32)
[2017-01-09] MEDS ORDERED: DEXAMETHASONE 10 MG/ML VIAL ONE (14:34)
[2017-01-09] MEDS ORDERED: ALBUTEROL NEB 2.5 MG/3 ML INH STA (15:59)
[2017-01-09] MEDS ORDERED: ONDANSETRON 4 MG/2 ML VIAL IVP PRN (16:09)
[2017-01-09] MEDS ORDERED: ALBUTEROL NEB 2.5 MG/3 ML INH PRN (16:09)
[2017-01-09] MEDS ORDERED: IPRATROPIUM/ALBUTEROL 3 ML NEB INH ONE (16:20)
[2017-01-09] MEDS: IPRATROPIUM/ALBUTEROL 3 ML NEB INH PRN (16:28)
[2017-01-09] MEDS ORDERED: VANCOMYCIN PER PHARMACY 0 GM in SODIUM CHLORIDE 0.9% 250 ML IV SCH (17:00)
[2017-01-09] MEDS: VANCOMYCIN INJ 1 GM in SODIUM CHLORIDE 0.9% 250 ML IV SCH (17:12)
[2017-01-09] MEDS: SODIUM CHLORIDE 0.9% 1,000 ML IV SCH (17:12)
[2017-01-09] MEDS: SACCHAROMYCES BOULARDII 250 MG CAPSULE PO SCH (17:32)
[2017-01-09] MEDS ORDERED: HYDROcod/ACETAM 5/325 MG TABLET PO PRN (18:39)
[2017-01-09] MEDS ORDERED: PIPERACILLIN/TAZOBACTAM 4.5 GM in SODIUM CHLORIDE 0.9% MINIBAG 100 ML IV SCH (20:00)
[2017-01-09] MEDS: LOSARTAN 50 MG TABLET PO SCH (20:37)
[2017-01-09] MEDS: ATORVASTATIN 10 MG TABLET PO SCH (20:37)
[2017-01-09] MEDS: METOPROLOL TARTRATE 50 MG TABLET PO SCH (20:41)
[2017-01-09] MEDS: MIRTAZAPINE 15 MG TABLET PO SCH (20:42)
[2017-01-09] MEDS: risperiDONE 0.25 MG TABLET PO SCH (20:42)
[2017-01-09] MEDS: AMPICILLIN/SULBACTAM 3 GM in SODIUM CHLORIDE 0.9% MINIBAG 100 ML IV SCH (20:45)
[2017-01-09] MEDS ORDERED: MIN OIL/DIMETHICON/COCONUT OIL 92 GM TUBE TOP PRN (21:58)
[2017-01-09] MEDS: SODIUM CHLORIDE FLUSH 0.9% 10 ML SYRINGE IVP SCH (22:31)
[2017-01-09] MEDS ORDERED: SODIUM CHLORIDE 0.9% 1,000 ML IV SCH (23:46)
[2017-01-10] MEDS: AMPICILLIN/SULBACTAM 3 GM in SODIUM CHLORIDE 0.9% MINIBAG 100 ML IV SCH ×4 (01:39→20:53)
[2017-01-10] MEDS: VANCOMYCIN INJ 1 GM in SODIUM CHLORIDE 0.9% 250 ML IV SCH ×2 (04:51→16:48)
[2017-01-10] MEDS: SODIUM CHLORIDE FLUSH 0.9% 10 ML SYRINGE IVP SCH ×3 (04:56→20:53)
[2017-01-10] MEDS: BUDESONIDE 0.5 MG/2 ML NEB INH SCH ×2 (08:45→21:20)
[2017-01-10] MEDS: IPRATROPIUM/ALBUTEROL 3 ML NEB INH PRN (08:45)
[2017-01-10] MEDS: POLYETHYLENE GLYCOL 3350 17 GM PACKET PO SCH (09:10)
[2017-01-10] MEDS: amLODIPine 5 MG TABLET PO SCH ×2 (09:11→12:23)
[2017-01-10] MEDS: LOSARTAN 50 MG TABLET PO SCH ×3 (09:12→20:51)
[2017-01-10] MEDS: METOPROLOL TARTRATE 50 MG TABLET PO SCH ×2 (09:12→20:50)
[2017-01-10] MEDS: FOLIC ACID 1 MG TABLET PO SCH (09:13)
[2017-01-10] MEDS: NEUTRA-PHOS 250 MG TABLET PO SCH ×2 (09:13→16:48)
[2017-01-10] MEDS: SACCHAROMYCES BOULARDII 250 MG CAPSULE PO SCH ×2 (09:13→16:48)
[2017-01-10] MEDS: ASPIRIN EC 81 MG TABLET PO SCH (09:13)
[2017-01-10] MEDS: GABAPENTIN 300 MG CAPSULE PO SCH ×3 (09:13→16:48)
[2017-01-10] MEDS: ENOXAPARIN 40 MG/0.4 ML SYRINGE SUBQ SCH (09:14)
[2017-01-10] MEDS: SODIUM CHLORIDE 0.9% 1,000 ML IV SCH (12:23)
[2017-01-10] MEDS: NORTRIPTYLINE 10 MG CAPSULE PO SCH (16:48)
[2017-01-10] MEDS: MIRTAZAPINE 15 MG TABLET PO SCH (20:51)
[2017-01-10] MEDS: risperiDONE 0.25 MG TABLET PO SCH (20:52)
[2017-01-10] MEDS: ATORVASTATIN 10 MG TABLET PO SCH (20:52)
[2017-01-10] MEDS: IPRATROPIUM 0.2 MG/ML NEB INH SCH (21:20)
[2017-01-10] MEDS: FORMOTEROL FUMARATE NEB 20 MCG/2 ML INH SCH (21:20)
[2017-01-10] MEDS ORDERED: ZINC OXIDE 20% OINT 28.35 GM TUBE TOP PRN (22:13)
[2017-01-11] MEDS: AMPICILLIN/SULBACTAM 3 GM in SODIUM CHLORIDE 0.9% MINIBAG 100 ML IV SCH ×4 (01:49→20:32)
[2017-01-11] MEDS: SODIUM CHLORIDE 0.9% 1,000 ML IV SCH ×3 (03:50→20:43)
[2017-01-11] MEDS: VANCOMYCIN INJ 1 GM in SODIUM CHLORIDE 0.9% 250 ML IV SCH ×2 (05:52→17:47)
[2017-01-11] MEDS: SODIUM CHLORIDE FLUSH 0.9% 10 ML SYRINGE IVP SCH ×3 (07:00→20:46)
[2017-01-11] MEDS: IPRATROPIUM 0.2 MG/ML NEB INH SCH ×4 (07:31→20:32)
[2017-01-11] MEDS: FORMOTEROL FUMARATE NEB 20 MCG/2 ML INH SCH ×3 (07:31→20:32)
[2017-01-11] MEDS: POLYETHYLENE GLYCOL 3350 17 GM PACKET PO SCH (09:13)
[2017-01-11] MEDS: SACCHAROMYCES BOULARDII 250 MG CAPSULE PO SCH ×2 (09:16→17:47)
[2017-01-11] MEDS: DOCUSATE SODIUM 250 MG CAPSULE PO SCH (09:16)
[2017-01-11] MEDS: SENNA 8.6 MG TABLET PO SCH (09:17)
[2017-01-11] MEDS: ASPIRIN EC 81 MG TABLET PO SCH (09:17)
[2017-01-11] MEDS: METOPROLOL TARTRATE 50 MG TABLET PO SCH ×2 (09:17→20:37)
[2017-01-11] MEDS: NEUTRA-PHOS 250 MG TABLET PO SCH ×2 (09:18→17:47)
[2017-01-11] MEDS: GABAPENTIN 300 MG CAPSULE PO SCH ×3 (09:18→17:47)
[2017-01-11] MEDS: amLODIPine 5 MG TABLET PO SCH (09:18)
[2017-01-11] MEDS: LOSARTAN 50 MG TABLET PO SCH ×2 (09:18→20:40)
[2017-01-11] MEDS: FOLIC ACID 1 MG TABLET PO SCH (09:18)
[2017-01-11] MEDS: ENOXAPARIN 40 MG/0.4 ML SYRINGE SUBQ SCH (09:19)
[2017-01-11] MEDS: BUDESONIDE 0.5 MG/2 ML NEB INH SCH ×2 (10:05→20:32)
[2017-01-11] MEDS: IPRATROPIUM/ALBUTEROL 3 ML NEB INH PRN (10:06)
[2017-01-11] MEDS: HYDROcod/ACETAM 5/325 MG TABLET PO PRN (17:47)
[2017-01-11] MEDS: NORTRIPTYLINE 10 MG CAPSULE PO SCH (17:47)
[2017-01-11] MEDS: ATORVASTATIN 10 MG TABLET PO SCH (20:37)
[2017-01-11] MEDS: MIRTAZAPINE 15 MG TABLET PO SCH (20:39)
[2017-01-11] MEDS: risperiDONE 0.25 MG TABLET PO SCH (20:41)
[2017-01-12] MEDS: AMPICILLIN/SULBACTAM 3 GM in SODIUM CHLORIDE 0.9% MINIBAG 100 ML IV SCH ×4 (02:49→20:48)
[2017-01-12] MEDS: SODIUM CHLORIDE FLUSH 0.9% 10 ML SYRINGE IVP SCH ×3 (05:27→21:34)
[2017-01-12] MEDS: VANCOMYCIN INJ 1 GM in SODIUM CHLORIDE 0.9% 250 ML IV SCH ×2 (05:50→17:00)
[2017-01-12] MEDS: IPRATROPIUM/ALBUTEROL 3 ML NEB INH PRN ×2 (07:35→13:15)
[2017-01-12] MEDS: BUDESONIDE 0.5 MG/2 ML NEB INH SCH ×2 (07:35→19:10)
[2017-01-12] MEDS: FORMOTEROL FUMARATE NEB 20 MCG/2 ML INH SCH ×2 (07:35→19:10)
[2017-01-12] MEDS: NEUTRA-PHOS 250 MG TABLET PO SCH ×2 (09:08→16:58)
[2017-01-12] MEDS: amLODIPine 5 MG TABLET PO SCH (09:08)
[2017-01-12] MEDS: GABAPENTIN 300 MG CAPSULE PO SCH ×3 (09:09→16:58)
[2017-01-12] MEDS: ENOXAPARIN 40 MG/0.4 ML SYRINGE SUBQ SCH (09:09)
[2017-01-12] MEDS: FOLIC ACID 1 MG TABLET PO SCH (09:09)
[2017-01-12] MEDS: SACCHAROMYCES BOULARDII 250 MG CAPSULE PO SCH ×2 (09:09→16:58)
[2017-01-12] MEDS: LOSARTAN 50 MG TABLET PO SCH ×2 (09:09→20:52)
[2017-01-12] MEDS: ASPIRIN EC 81 MG TABLET PO SCH (09:09)
[2017-01-12] MEDS: DOCUSATE SODIUM 250 MG CAPSULE PO SCH (09:10)
[2017-01-12] MEDS: SENNA 8.6 MG TABLET PO SCH (09:10)
[2017-01-12] MEDS: POLYETHYLENE GLYCOL 3350 17 GM PACKET PO SCH (09:10)
[2017-01-12] MEDS: METOPROLOL TARTRATE 50 MG TABLET PO SCH ×2 (09:12→20:49)
[2017-01-12] MEDS ORDERED: POTASSIUM CHLORIDE 10 MEQ CAPSULE PO SCH (12:00)
[2017-01-12] MEDS: SODIUM CHLORIDE 0.9% 1,000 ML IV SCH (14:04)
[2017-01-12] MEDS: IPRATROPIUM 0.2 MG/ML NEB INH SCH ×2 (15:26→19:10)
[2017-01-12] MEDS: NORTRIPTYLINE 10 MG CAPSULE PO SCH (16:58)
[2017-01-12] MEDS: POTASSIUM CHLORIDE 10 MEQ CAPSULE PO SCH ×2 (16:58→20:51)
[2017-01-12] MEDS: ATORVASTATIN 10 MG TABLET PO SCH (20:51)
[2017-01-12] MEDS: MIRTAZAPINE 15 MG TABLET PO SCH (20:52)
[2017-01-12] MEDS: HYDROcod/ACETAM 5/325 MG TABLET PO PRN (20:52)
[2017-01-12] MEDS: risperiDONE 0.25 MG TABLET PO SCH (20:52)
[2017-01-13] MEDS: IPRATROPIUM 0.2 MG/ML NEB INH SCH ×4 (00:35→19:30)
[2017-01-13] MEDS: AMPICILLIN/SULBACTAM 3 GM in SODIUM CHLORIDE 0.9% MINIBAG 100 ML IV SCH ×4 (01:56→20:52)
[2017-01-13] MEDS: VANCOMYCIN INJ 1 GM in SODIUM CHLORIDE 0.9% 250 ML IV SCH ×2 (04:43→17:07)
[2017-01-13] MEDS: SODIUM CHLORIDE FLUSH 0.9% 10 ML SYRINGE IVP SCH ×3 (04:43→20:58)
[2017-01-13] MEDS: SODIUM CHLORIDE 0.9% 1,000 ML IV SCH ×2 (07:19→17:07)
[2017-01-13] MEDS: FORMOTEROL FUMARATE NEB 20 MCG/2 ML INH SCH ×2 (08:06→19:30)
[2017-01-13] MEDS: BUDESONIDE 0.5 MG/2 ML NEB INH SCH ×2 (08:06→19:30)
[2017-01-13] MEDS: METOPROLOL TARTRATE 50 MG TABLET PO SCH ×2 (08:43→20:54)
[2017-01-13] MEDS: ASPIRIN EC 81 MG TABLET PO SCH (08:43)
[2017-01-13] MEDS: GABAPENTIN 300 MG CAPSULE PO SCH ×3 (08:43→17:07)
[2017-01-13] MEDS: NEUTRA-PHOS 250 MG TABLET PO SCH ×2 (08:43→17:07)
[2017-01-13] MEDS: amLODIPine 5 MG TABLET PO SCH (08:44)
[2017-01-13] MEDS: SACCHAROMYCES BOULARDII 250 MG CAPSULE PO SCH ×2 (08:45→17:07)
[2017-01-13] MEDS: FOLIC ACID 1 MG TABLET PO SCH (08:45)
[2017-01-13] MEDS: LOSARTAN 50 MG TABLET PO SCH ×2 (08:45→20:57)
[2017-01-13] MEDS: POLYETHYLENE GLYCOL 3350 17 GM PACKET PO SCH (08:46)
[2017-01-13] MEDS: ENOXAPARIN 40 MG/0.4 ML SYRINGE SUBQ SCH (08:46)
[2017-01-13] MEDS: DOCUSATE SODIUM 250 MG CAPSULE PO SCH (11:24)
[2017-01-13] MEDS: SENNA 8.6 MG TABLET PO SCH (11:24)
[2017-01-13] MEDS: ACETAMINOPHEN 325 MG TABLET PO PRN ×2 (11:47→20:58)
[2017-01-13] MEDS: NORTRIPTYLINE 10 MG CAPSULE PO SCH (17:07)
[2017-01-13] MEDS: risperiDONE 0.25 MG TABLET PO SCH (20:53)
[2017-01-13] MEDS: MIRTAZAPINE 15 MG TABLET PO SCH (20:53)
[2017-01-13] MEDS: ATORVASTATIN 10 MG TABLET PO SCH (20:56)
[2017-01-13] MEDS: HYDROcod/ACETAM 5/325 MG TABLET PO PRN (23:51)
[2017-01-14] MEDS: IPRATROPIUM 0.2 MG/ML NEB INH SCH ×4 (01:00→14:36)
[2017-01-14] MEDS: AMPICILLIN/SULBACTAM 3 GM in SODIUM CHLORIDE 0.9% MINIBAG 100 ML IV SCH ×4 (01:47→20:27)
[2017-01-14] MEDS: SODIUM CHLORIDE 0.9% 1,000 ML IV SCH ×2 (04:06→20:21)
[2017-01-14] MEDS: VANCOMYCIN INJ 1 GM in SODIUM CHLORIDE 0.9% 250 ML IV SCH (04:35)
[2017-01-14] MEDS: HYDROcod/ACETAM 5/325 MG TABLET PO PRN ×2 (04:35→14:02)
[2017-01-14] MEDS: SODIUM CHLORIDE FLUSH 0.9% 10 ML SYRINGE IVP SCH ×3 (06:02→22:38)
[2017-01-14] MEDS: ENOXAPARIN 40 MG/0.4 ML SYRINGE SUBQ SCH (08:59)
[2017-01-14] MEDS: NEUTRA-PHOS 250 MG TABLET PO SCH ×2 (08:59→17:21)
[2017-01-14] MEDS: SACCHAROMYCES BOULARDII 250 MG CAPSULE PO SCH ×2 (08:59→17:21)
[2017-01-14] MEDS: METOPROLOL TARTRATE 50 MG TABLET PO SCH ×2 (08:59→20:25)
[2017-01-14] MEDS: FOLIC ACID 1 MG TABLET PO SCH (09:01)
[2017-01-14] MEDS: ASPIRIN EC 81 MG TABLET PO SCH (09:01)
[2017-01-14] MEDS: amLODIPine 5 MG TABLET PO SCH (09:01)
[2017-01-14] MEDS: GABAPENTIN 300 MG CAPSULE PO SCH ×3 (09:01→17:21)
[2017-01-14] MEDS: LOSARTAN 50 MG TABLET PO SCH ×2 (09:01→20:26)
[2017-01-14] MEDS: DOCUSATE SODIUM 250 MG CAPSULE PO SCH (09:01)
[2017-01-14] MEDS: FORMOTEROL FUMARATE NEB 20 MCG/2 ML INH SCH ×2 (09:35→22:05)
[2017-01-14] MEDS: BUDESONIDE 0.5 MG/2 ML NEB INH SCH ×2 (09:35→22:05)
[2017-01-14] MEDS: SENNA 8.6 MG TABLET PO SCH (10:04)
[2017-01-14] MEDS: CEFEPIME 2 GM in SODIUM CHLORIDE 0.9% MINIBAG 100 ML IV SCH ×2 (11:09→22:14)
[2017-01-14] MEDS: POLYETHYLENE GLYCOL 3350 17 GM PACKET PO SCH (11:09)
[2017-01-14] MEDS: NORTRIPTYLINE 10 MG CAPSULE PO SCH (17:21)
[2017-01-14] MEDS: ATORVASTATIN 10 MG TABLET PO SCH (20:26)
[2017-01-14] MEDS: MIRTAZAPINE 15 MG TABLET PO SCH (20:26)
[2017-01-14] MEDS: risperiDONE 0.25 MG TABLET PO SCH (20:26)
[2017-01-14] MEDS ORDERED: FUROSEMIDE 40 MG/4 ML VIAL IVP STA (20:27)
[2017-01-14] MEDS: ACETAMINOPHEN 325 MG TABLET PO PRN (21:17)
[2017-01-14] MEDS ORDERED: ACETAMINOPHEN 1,000 MG/100 ML 100 ML IV SCH (21:23)
[2017-01-14] MEDS: IPRATROPIUM/ALBUTEROL 3 ML NEB INH PRN (22:05)
[2017-01-14] MEDS ORDERED: IOPAMIDOL-300 100 ML VIAL IVP ONE (22:49)
[2017-01-15] MEDS: AMPICILLIN/SULBACTAM 3 GM in SODIUM CHLORIDE 0.9% MINIBAG 100 ML IV SCH (02:41)
[2017-01-15] MEDS: IPRATROPIUM/ALBUTEROL 3 ML NEB INH PRN (03:00)
[2017-01-15] MEDS: IPRATROPIUM 0.2 MG/ML NEB INH SCH ×4 (03:09→19:00)
[2017-01-15] MEDS: SODIUM CHLORIDE FLUSH 0.9% 10 ML SYRINGE IVP SCH ×3 (06:40→21:05)
[2017-01-15] MEDS ORDERED: SODIUM CHLORIDE 0.9% 250 ML IV ONE (08:15)
[2017-01-15] MEDS: MAGNESIUM SULFATE 2 GRAM 50 ML IV SCH ×2 (08:41→09:32)
[2017-01-15] MEDS: CLINDAMYCIN 600 MG/50 ML 50 ML IV SCH ×3 (08:47→19:00)
[2017-01-15] MEDS: METOPROLOL TARTRATE 50 MG TABLET PO SCH ×2 (08:48→20:44)
[2017-01-15] MEDS: SACCHAROMYCES BOULARDII 250 MG CAPSULE PO SCH ×2 (08:49→17:53)
[2017-01-15] MEDS: ASPIRIN EC 81 MG TABLET PO SCH (08:49)
[2017-01-15] MEDS: amLODIPine 5 MG TABLET PO SCH (08:50)
[2017-01-15] MEDS: LOSARTAN 50 MG TABLET PO SCH ×2 (08:50→20:45)
[2017-01-15] MEDS: DOCUSATE SODIUM 250 MG CAPSULE PO SCH ×2 (08:50→12:00)
[2017-01-15] MEDS: FOLIC ACID 1 MG TABLET PO SCH (08:50)
[2017-01-15] MEDS: ENOXAPARIN 40 MG/0.4 ML SYRINGE SUBQ SCH (08:51)
[2017-01-15] MEDS: NEUTRA-PHOS 250 MG TABLET PO SCH ×2 (08:51→17:54)
[2017-01-15] MEDS: CEFEPIME 2 GM in SODIUM CHLORIDE 0.9% MINIBAG 100 ML IV SCH ×2 (08:51→20:56)
[2017-01-15] MEDS: GABAPENTIN 300 MG CAPSULE PO SCH ×3 (08:51→17:54)
[2017-01-15] MEDS: FUROSEMIDE 40 MG TABLET PO SCH (08:54)
[2017-01-15] MEDS: SENNA 8.6 MG TABLET PO SCH ×3 (09:38→12:00)
[2017-01-15] MEDS: POLYETHYLENE GLYCOL 3350 17 GM PACKET PO SCH (09:45)
[2017-01-15] MEDS: POTASSIUM CHLOR 10 MEQ/100 ML 100 ML IV SCH ×5 (09:47→14:31)
[2017-01-15] MEDS: ACETAMINOPHEN 325 MG TABLET PO PRN (10:16)
[2017-01-15] MEDS: SODIUM CHLORIDE FLUSH 0.9% 10 ML SYRINGE IVP PRN (10:34)
[2017-01-15] MEDS: FORMOTEROL FUMARATE NEB 20 MCG/2 ML INH SCH ×2 (10:50→19:00)
[2017-01-15] MEDS: BUDESONIDE 0.5 MG/2 ML NEB INH SCH ×2 (10:50→19:00)
[2017-01-15] MEDS ORDERED: FUROSEMIDE 40 MG/4 ML VIAL IVP ONE (11:00)
[2017-01-15] MEDS: methylPREDNISolone SUCCINATE 40 MG/ML VIAL IVP SCH ×2 (14:32→21:00)
[2017-01-15] MEDS ORDERED: SODIUM CHLORIDE 0.9% 1,000 ML IV ONE (14:48)
[2017-01-15] MEDS: NORTRIPTYLINE 10 MG CAPSULE PO SCH (18:03)
[2017-01-15] MEDS: MIRTAZAPINE 15 MG TABLET PO SCH (21:13)
[2017-01-15] MEDS: risperiDONE 0.25 MG TABLET PO SCH (21:13)
[2017-01-15] MEDS: ATORVASTATIN 10 MG TABLET PO SCH (21:13)
[2017-01-16] MEDS: CLINDAMYCIN 600 MG/50 ML 50 ML IV SCH ×4 (00:29→18:40)
[2017-01-16] MEDS: SODIUM CHLORIDE FLUSH 0.9% 10 ML SYRINGE IVP PRN (00:30)
[2017-01-16] MEDS: IPRATROPIUM 0.2 MG/ML NEB INH SCH ×4 (01:00→21:02)
[2017-01-16] MEDS: SODIUM CHLORIDE FLUSH 0.9% 10 ML SYRINGE IVP SCH ×3 (05:28→22:39)
[2017-01-16] MEDS: methylPREDNISolone SUCCINATE 40 MG/ML VIAL IVP SCH ×3 (05:28→21:04)
[2017-01-16] MEDS: BUDESONIDE 0.5 MG/2 ML NEB INH SCH ×2 (07:15→19:00)
[2017-01-16] MEDS: IPRATROPIUM/ALBUTEROL 3 ML NEB INH PRN (07:15)
[2017-01-16] MEDS: POLYETHYLENE GLYCOL 3350 17 GM PACKET PO SCH (08:54)
[2017-01-16] MEDS: amLODIPine 5 MG TABLET PO SCH (08:56)
[2017-01-16] MEDS: SENNA 8.6 MG TABLET PO SCH (08:56)
[2017-01-16] MEDS: DOCUSATE SODIUM 250 MG CAPSULE PO SCH (08:57)
[2017-01-16] MEDS: FOLIC ACID 1 MG TABLET PO SCH (08:57)
[2017-01-16] MEDS: LOSARTAN 50 MG TABLET PO SCH ×2 (08:58→20:52)
[2017-01-16] MEDS: METOPROLOL TARTRATE 50 MG TABLET PO SCH ×2 (08:58→20:52)
[2017-01-16] MEDS: GABAPENTIN 300 MG CAPSULE PO SCH ×3 (08:58→16:52)
[2017-01-16] MEDS: ASPIRIN EC 81 MG TABLET PO SCH (08:58)
[2017-01-16] MEDS: FUROSEMIDE 40 MG TABLET PO SCH (08:58)
[2017-01-16] MEDS: SACCHAROMYCES BOULARDII 250 MG CAPSULE PO SCH ×2 (08:58→16:52)
[2017-01-16] MEDS: ENOXAPARIN 40 MG/0.4 ML SYRINGE SUBQ SCH (08:59)
[2017-01-16] MEDS: CEFEPIME 2 GM in SODIUM CHLORIDE 0.9% MINIBAG 100 ML IV SCH ×2 (08:59→20:51)
[2017-01-16] MEDS: NEUTRA-PHOS 250 MG TABLET PO SCH ×2 (10:50→16:49)
[2017-01-16] MEDS: FORMOTEROL FUMARATE NEB 20 MCG/2 ML INH SCH ×2 (13:00→19:00)
[2017-01-16] MEDS: NORTRIPTYLINE 10 MG CAPSULE PO SCH (16:52)
[2017-01-16] MEDS: ATORVASTATIN 10 MG TABLET PO SCH (20:52)
[2017-01-16] MEDS: risperiDONE 0.25 MG TABLET PO SCH (20:54)
[2017-01-16] MEDS: MIRTAZAPINE 15 MG TABLET PO SCH (21:04)
[2017-01-17] MEDS: CLINDAMYCIN 600 MG/50 ML 50 ML IV SCH ×4 (00:12→18:00)
[2017-01-17] MEDS: SODIUM CHLORIDE FLUSH 0.9% 10 ML SYRINGE IVP PRN ×2 (00:12→18:26)
[2017-01-17] MEDS: SODIUM CHLORIDE FLUSH 0.9% 10 ML SYRINGE IVP SCH ×3 (06:33→22:15)
[2017-01-17] MEDS: methylPREDNISolone SUCCINATE 40 MG/ML VIAL IVP SCH ×3 (06:34→22:16)
[2017-01-17] MEDS: IPRATROPIUM/ALBUTEROL 3 ML NEB INH PRN ×2 (07:15→13:10)
[2017-01-17] MEDS: FORMOTEROL FUMARATE NEB 20 MCG/2 ML INH SCH ×2 (07:15→19:25)
[2017-01-17] MEDS: BUDESONIDE 0.5 MG/2 ML NEB INH SCH ×2 (07:15→19:25)
[2017-01-17] MEDS: IPRATROPIUM 0.2 MG/ML NEB INH SCH ×5 (08:05→19:25)
[2017-01-17] MEDS: SENNA 8.6 MG TABLET PO SCH (08:23)
[2017-01-17] MEDS: DOCUSATE SODIUM 250 MG CAPSULE PO SCH (08:23)
[2017-01-17] MEDS: FOLIC ACID 1 MG TABLET PO SCH (08:24)
[2017-01-17] MEDS: amLODIPine 5 MG TABLET PO SCH (08:24)
[2017-01-17] MEDS: ASPIRIN EC 81 MG TABLET PO SCH (08:24)
[2017-01-17] MEDS: GABAPENTIN 300 MG CAPSULE PO SCH ×3 (08:24→18:00)
[2017-01-17] MEDS: SACCHAROMYCES BOULARDII 250 MG CAPSULE PO SCH ×2 (08:26→18:00)
[2017-01-17] MEDS: LOSARTAN 50 MG TABLET PO SCH ×2 (08:26→22:17)
[2017-01-17] MEDS: METOPROLOL TARTRATE 50 MG TABLET PO SCH ×2 (08:26→22:18)
[2017-01-17] MEDS: CEFEPIME 2 GM in SODIUM CHLORIDE 0.9% MINIBAG 100 ML IV SCH ×2 (08:27→22:15)
[2017-01-17] MEDS: POLYETHYLENE GLYCOL 3350 17 GM PACKET PO SCH (08:27)
[2017-01-17] MEDS: ENOXAPARIN 40 MG/0.4 ML SYRINGE SUBQ SCH (08:27)
[2017-01-17] MEDS ORDERED: POTASSIUM CHLORIDE 20 MEQ TABLET PO SCH (08:30)
[2017-01-17] MEDS: POTASSIUM CHLOR 10 MEQ/100 ML 100 ML IV SCH ×4 (08:34→14:38)
[2017-01-17] MEDS: FUROSEMIDE 40 MG TABLET PO SCH (08:45)
[2017-01-17] MEDS ORDERED: SODIUM CHLORIDE 0.9% 500 ML IV ONE (12:09)
[2017-01-17] MEDS: NORTRIPTYLINE 10 MG CAPSULE PO SCH (18:00)
[2017-01-17] MEDS: MIRTAZAPINE 15 MG TABLET PO SCH (22:16)
[2017-01-17] MEDS: risperiDONE 0.25 MG TABLET PO SCH (22:17)
[2017-01-17] MEDS: ATORVASTATIN 10 MG TABLET PO SCH (22:20)
[2017-01-18] MEDS: CLINDAMYCIN 600 MG/50 ML 50 ML IV SCH ×4 (00:42→18:00)
[2017-01-18] MEDS: SODIUM CHLORIDE FLUSH 0.9% 10 ML SYRINGE IVP PRN ×3 (00:42→22:05)
[2017-01-18] MEDS: IPRATROPIUM 0.2 MG/ML NEB INH SCH ×2 (01:00→08:28)
[2017-01-18] MEDS ORDERED: MAGNESIUM HYDROXIDE 2,400 MG/30 ML UDC PO SCH (04:04)
[2017-01-18] MEDS: SODIUM CHLORIDE FLUSH 0.9% 10 ML SYRINGE IVP SCH ×3 (06:49→18:09)
[2017-01-18] MEDS: methylPREDNISolone SUCCINATE 40 MG/ML VIAL IVP SCH ×3 (06:49→22:05)
[2017-01-18] MEDS: BUDESONIDE 0.5 MG/2 ML NEB INH SCH ×2 (08:00→19:43)
[2017-01-18] MEDS: FORMOTEROL FUMARATE NEB 20 MCG/2 ML INH SCH ×2 (08:00→19:43)
[2017-01-18] MEDS ORDERED: SENNA 8.6 MG TABLET PO SCH (08:00)
[2017-01-18] MEDS: IPRATROPIUM/ALBUTEROL 3 ML NEB INH PRN ×3 (08:00→19:43)
[2017-01-18] MEDS: DOCUSATE SODIUM 250 MG CAPSULE PO SCH (09:35)
[2017-01-18] MEDS: HYDROcod/ACETAM 5/325 MG TABLET PO PRN (09:35)
[2017-01-18] MEDS: LOSARTAN 50 MG TABLET PO SCH ×2 (09:35→22:04)
[2017-01-18] MEDS: amLODIPine 5 MG TABLET PO SCH (09:36)
[2017-01-18] MEDS: SENNA 8.6 MG TABLET PO SCH (09:36)
[2017-01-18] MEDS: SACCHAROMYCES BOULARDII 250 MG CAPSULE PO SCH ×2 (09:36→18:00)
[2017-01-18] MEDS: FOLIC ACID 1 MG TABLET PO SCH (09:36)
[2017-01-18] MEDS: GABAPENTIN 300 MG CAPSULE PO SCH ×3 (09:37→18:00)
[2017-01-18] MEDS: METOPROLOL TARTRATE 50 MG TABLET PO SCH ×2 (09:37→22:06)
[2017-01-18] MEDS: POLYETHYLENE GLYCOL 3350 17 GM PACKET PO SCH (09:37)
[2017-01-18] MEDS: FUROSEMIDE 40 MG TABLET PO SCH (09:37)
[2017-01-18] MEDS: ENOXAPARIN 40 MG/0.4 ML SYRINGE SUBQ SCH (09:37)
[2017-01-18] MEDS: ASPIRIN EC 81 MG TABLET PO SCH (09:37)
[2017-01-18] MEDS: CEFEPIME 2 GM in SODIUM CHLORIDE 0.9% MINIBAG 100 ML IV SCH ×2 (09:38→22:07)
[2017-01-18] MEDS: CHOLECALCIFEROL 1,000 UNIT TABLET PO SCH (13:17)
[2017-01-18] MEDS ORDERED: SODIUM CHLORIDE 0.9% 250 ML IV ONE (17:53)
[2017-01-18] MEDS: NORTRIPTYLINE 10 MG CAPSULE PO SCH (18:00)
[2017-01-18] MEDS: risperiDONE 0.25 MG TABLET PO SCH (22:04)
[2017-01-18] MEDS: ATORVASTATIN 10 MG TABLET PO SCH (22:04)
[2017-01-18] MEDS: MIRTAZAPINE 15 MG TABLET PO SCH (22:05)
[2017-01-19] MEDS: CLINDAMYCIN 600 MG/50 ML 50 ML IV SCH ×4 (00:15→17:15)
[2017-01-19] MEDS: SODIUM CHLORIDE FLUSH 0.9% 10 ML SYRINGE IVP PRN ×2 (00:22→17:15)
[2017-01-19] MEDS: IPRATROPIUM 0.2 MG/ML NEB INH SCH ×6 (00:47→20:24)
[2017-01-19] MEDS: methylPREDNISolone SUCCINATE 40 MG/ML VIAL IVP SCH (06:18)
[2017-01-19] MEDS: SODIUM CHLORIDE FLUSH 0.9% 10 ML SYRINGE IVP SCH ×3 (06:19→20:37)
[2017-01-19] MEDS: BUDESONIDE 0.5 MG/2 ML NEB INH SCH ×2 (07:54→20:22)
[2017-01-19] MEDS: FORMOTEROL FUMARATE NEB 20 MCG/2 ML INH SCH ×2 (07:55→20:22)
[2017-01-19] MEDS: IPRATROPIUM/ALBUTEROL 3 ML NEB INH PRN (07:56)
[2017-01-19] MEDS: POLYETHYLENE GLYCOL 3350 17 GM PACKET PO SCH (09:12)
[2017-01-19] MEDS: CEFEPIME 2 GM in SODIUM CHLORIDE 0.9% MINIBAG 100 ML IV SCH ×2 (09:12→20:38)
[2017-01-19] MEDS: LOSARTAN 50 MG TABLET PO SCH ×2 (09:13→20:37)
[2017-01-19] MEDS: SENNA 8.6 MG TABLET PO SCH (09:13)
[2017-01-19] MEDS: ASPIRIN EC 81 MG TABLET PO SCH (09:13)
[2017-01-19] MEDS: amLODIPine 5 MG TABLET PO SCH (09:13)
[2017-01-19] MEDS: METOPROLOL TARTRATE 50 MG TABLET PO SCH ×2 (09:13→20:39)
[2017-01-19] MEDS: FUROSEMIDE 40 MG TABLET PO SCH (09:13)
[2017-01-19] MEDS: CHOLECALCIFEROL 1,000 UNIT TABLET PO SCH (09:15)
[2017-01-19] MEDS: FOLIC ACID 1 MG TABLET PO SCH (09:15)
[2017-01-19] MEDS: DOCUSATE SODIUM 250 MG CAPSULE PO SCH (09:15)
[2017-01-19] MEDS: GABAPENTIN 300 MG CAPSULE PO SCH ×3 (09:16→17:13)
[2017-01-19] MEDS: SACCHAROMYCES BOULARDII 250 MG CAPSULE PO SCH ×2 (09:16→17:13)
[2017-01-19] MEDS: ENOXAPARIN 40 MG/0.4 ML SYRINGE SUBQ SCH (09:20)
[2017-01-19] MEDS: NORTRIPTYLINE 10 MG CAPSULE PO SCH (17:13)
[2017-01-19] MEDS: ATORVASTATIN 10 MG TABLET PO SCH (20:37)
[2017-01-19] MEDS: risperiDONE 0.25 MG TABLET PO SCH (20:37)
[2017-01-19] MEDS: MIRTAZAPINE 15 MG TABLET PO SCH (20:41)
[2017-01-19] MEDS ORDERED: LINEZOLID 600 MG TABLET PO SCH (22:00)
[2017-01-19] MEDS: HYDROcod/ACETAM 5/325 MG TABLET PO PRN (23:00)
[2017-01-20] MEDS: SODIUM CHLORIDE FLUSH 0.9% 10 ML SYRINGE IVP SCH ×4 (01:11→15:49)
[2017-01-20] MEDS: BUDESONIDE 0.5 MG/2 ML NEB INH SCH ×2 (07:54→19:45)
[2017-01-20] MEDS: FORMOTEROL FUMARATE NEB 20 MCG/2 ML INH SCH ×2 (07:55→19:45)
[2017-01-20] MEDS: IPRATROPIUM 0.2 MG/ML NEB INH SCH ×4 (07:55→19:46)
[2017-01-20] MEDS ORDERED: POTASSIUM CHLORIDE 20 MEQ TABLET PO STA ×2 (07:58→10:34)
[2017-01-20] MEDS: predniSONE 20 MG TABLET PO SCH ×2 (08:59→10:21)
[2017-01-20] MEDS: amLODIPine 5 MG TABLET PO SCH ×2 (09:00→10:22)
[2017-01-20] MEDS: GABAPENTIN 300 MG CAPSULE PO SCH ×4 (09:00→16:55)
[2017-01-20] MEDS: METOPROLOL TARTRATE 50 MG TABLET PO SCH ×3 (09:00→20:36)
[2017-01-20] MEDS: LOSARTAN 50 MG TABLET PO SCH ×3 (09:00→20:35)
[2017-01-20] MEDS: FUROSEMIDE 40 MG TABLET PO SCH ×2 (09:00→10:22)
[2017-01-20] MEDS: FOLIC ACID 1 MG TABLET PO SCH ×2 (09:00→10:22)
[2017-01-20] MEDS: SACCHAROMYCES BOULARDII 250 MG CAPSULE PO SCH ×3 (09:00→16:55)
[2017-01-20] MEDS: ASPIRIN EC 81 MG TABLET PO SCH ×2 (09:00→10:22)
[2017-01-20] MEDS: CHOLECALCIFEROL 1,000 UNIT TABLET PO SCH ×2 (09:01→10:22)
[2017-01-20] MEDS: levoFLOXacin 250 MG TABLET PO SCH ×2 (09:01→10:23)
[2017-01-20] MEDS: DOCUSATE SODIUM 250 MG CAPSULE PO SCH ×2 (09:01→10:22)
[2017-01-20] MEDS: SENNA 8.6 MG TABLET PO SCH ×2 (09:01→10:23)
[2017-01-20] MEDS: ENOXAPARIN 40 MG/0.4 ML SYRINGE SUBQ SCH (09:01)
[2017-01-20] MEDS: POLYETHYLENE GLYCOL 3350 17 GM PACKET PO SCH (09:02)
[2017-01-20] MEDS: NORTRIPTYLINE 10 MG CAPSULE PO SCH (16:55)
[2017-01-20] MEDS: ATORVASTATIN 10 MG TABLET PO SCH (20:35)
[2017-01-20] MEDS: risperiDONE 0.25 MG TABLET PO SCH (20:36)
[2017-01-20] MEDS: MIRTAZAPINE 15 MG TABLET PO SCH (20:36)
[2017-01-21] MEDS: IPRATROPIUM 0.2 MG/ML NEB INH SCH ×2 (04:45→07:40)
[2017-01-21] MEDS: SODIUM CHLORIDE FLUSH 0.9% 10 ML SYRINGE IVP SCH (06:45)
[2017-01-21] MEDS: BUDESONIDE 0.5 MG/2 ML NEB INH SCH (07:40)
[2017-01-21] MEDS: FORMOTEROL FUMARATE NEB 20 MCG/2 ML INH SCH (07:40)
[2017-01-21] MEDS: predniSONE 20 MG TABLET PO SCH (08:09)
[2017-01-21] MEDS: SACCHAROMYCES BOULARDII 250 MG CAPSULE PO SCH (08:11)
[2017-01-21] MEDS: GABAPENTIN 300 MG CAPSULE PO SCH (08:11)
[2017-01-21] MEDS: ENOXAPARIN 40 MG/0.4 ML SYRINGE SUBQ SCH (08:24)
[2017-01-21] MEDS: FOLIC ACID 1 MG TABLET PO SCH (08:25)
[2017-01-21] MEDS: DOCUSATE SODIUM 250 MG CAPSULE PO SCH ×2 (08:25→08:27)
[2017-01-21] MEDS: FUROSEMIDE 40 MG TABLET PO SCH (08:25)
[2017-01-21] MEDS: METOPROLOL TARTRATE 50 MG TABLET PO SCH (08:27)
[2017-01-21] MEDS: ASPIRIN EC 81 MG TABLET PO SCH (08:29)
[2017-01-21] MEDS: amLODIPine 5 MG TABLET PO SCH (08:30)
[2017-01-21] MEDS: SENNA 8.6 MG TABLET PO SCH (08:31)
[2017-01-21] MEDS: CHOLECALCIFEROL 1,000 UNIT TABLET PO SCH (08:32)
[2017-01-21] MEDS: levoFLOXacin 250 MG TABLET PO SCH (08:33)
[2017-01-21] MEDS: POLYETHYLENE GLYCOL 3350 17 GM PACKET PO SCH (09:23)
[2017-01-21] MEDS: LOSARTAN 50 MG TABLET PO SCH (09:27)
== END 2017-01-21 15:01 | disposition home or self-care (01) | DRG 189 ==
DX: J96.21 Acute and chronic respiratory failure with hypoxia (principal); J18.9 Pneumonia, unspecified organism; J44.0 Chronic obstructive pulmonary disease with (acute) lower respiratory infection; J81.1 Chronic pulmonary edema; J44.1 Chronic obstructive pulmonary disease with (acute) exacerbation; Y95 Nosocomial condition; I10 Essential (primary) hypertension; I25.10 Atherosclerotic heart disease of native coronary artery without angina pectoris; I73.9 Peripheral vascular disease, unspecified; K21.9 Gastro-esophageal reflux disease without esophagitis; Z79.82 Long term (current) use of aspirin; Z87.891 Personal history of nicotine dependence; G89.29 Other chronic pain; M54.9 Dorsalgia, unspecified; E87.6 Hypokalemia; F01.50 Vascular dementia, unspecified severity, without behavioral disturbance, psychotic disturbance, mood disturbance, and anxiety; M85.80 Other specified disorders of bone density and structure, unspecified site; Z95.5 Presence of coronary angioplasty implant and graft; Z99.81 Dependence on supplemental oxygen; E78.5 Hyperlipidemia, unspecified; Z66 Do not resuscitate

== ENCOUNTER 2017-03-28 19:40 | Outpatient (CLI) | payer MEDICARE, OTHER | END 2017-03-28 19:41 | disposition home or self-care (01) | DX: R53.83 Other fatigue (principal) | CPT/HCPCS: A0425; A0429 ==

== ENCOUNTER 2017-03-28 19:54 | Inpatient (IN) | payer MEDICARE, OTHER ==
[2017-03-28] MEDS ORDERED: SODIUM CHLORIDE 0.9% 1,000 ML IV ONE (20:02)
[2017-03-29] MEDS ORDERED: ACETAMINOPHEN 325 MG TABLET PO STA (00:34)
[2017-03-29] MEDS ORDERED: ACETAMINOPHEN 325 MG TABLET PO ONE (00:36)
[2017-03-29] MEDS ORDERED: NYSTATIN CREAM 15 GM TUBE TOP STA (00:39)
[2017-03-29] MEDS ORDERED: ACETAMINOPHEN 1,000 MG/100 ML 100 ML IV STA (00:39)
[2017-03-29] MEDS ORDERED: NYSTATIN CREAM 15 GM TUBE TOP ONE (00:40)
[2017-03-29] MEDS ORDERED: ACETAMINOPHEN 1,000 MG/100 ML 100 ML IV ONE (00:41)
[2017-03-29] MEDS ORDERED: IOPAMIDOL-300 100 ML VIAL IVP ONE (03:12)
[2017-03-29] MEDS ORDERED: SODIUM CHLORIDE 0.9% 500 ML IV ONE (03:39)
[2017-03-29] MEDS ORDERED: VANCOMYCIN INJ 1 GM in SODIUM CHLORIDE 0.9% 250 ML IV STA (03:57)
[2017-03-29] MEDS ORDERED: PIPERACILLIN/TAZOBACTAM 4.5 GM in SODIUM CHLORIDE 0.9% MINIBAG 100 ML IV STA (03:57)
[2017-03-29] MEDS ORDERED: ONDANSETRON 4 MG/2 ML VIAL IVP PRN (04:23)
[2017-03-29] MEDS ORDERED: ZOLPIDEM 5 MG TABLET PO PRN (04:23)
[2017-03-29] MEDS ORDERED: IPRATROPIUM/ALBUTEROL 3 ML NEB INH PRN (04:23)
[2017-03-29] MEDS ORDERED: HYDROcod/ACETAM 10 MG/325 MG TABLET PO PRN (04:23)
[2017-03-29] MEDS ORDERED: PROCHLORPERAZINE 10 MG/2 ML VIAL IVP PRN (04:23)
[2017-03-29] MEDS ORDERED: HYDROcod/ACETAM 5/325 MG TABLET PO PRN (04:23)
[2017-03-29] MEDS ORDERED: SODIUM CHLORIDE FLUSH 0.9% 10 ML SYRINGE IVP PRN (04:23)
[2017-03-29] MEDS ORDERED: SODIUM CHLORIDE 0.9% 500 ML IV SCH (04:23)
[2017-03-29] MEDS ORDERED: ACETAMINOPHEN 325 MG TABLET PO PRN (04:23)
[2017-03-29] MEDS ORDERED: MORPHINE 2 MG/ML SYRINGE IVP PRN (04:23)
[2017-03-29] MEDS: SODIUM CHLORIDE 0.9% 1,000 ML IV SCH ×3 (05:00→18:48)
[2017-03-29] MEDS ORDERED: VANCOMYCIN INJ 1 GM in SODIUM CHLORIDE 0.9% 250 ML IV SCH (06:00)
[2017-03-29] MEDS: methylPREDNISolone SUCCINATE 40 MG/ML VIAL IVP SCH ×3 (06:06→17:29)
[2017-03-29] MEDS: SODIUM CHLORIDE FLUSH 0.9% 10 ML SYRINGE IVP SCH ×3 (06:06→21:47)
[2017-03-29] MEDS: PANTOPRAZOLE 40 MG VIAL IVP SCH (06:16)
[2017-03-29] MEDS ORDERED: VANCOMYCIN PER PHARMACY 1 GM in SODIUM CHLORIDE 0.9% 250 ML IV SCH (09:00)
[2017-03-29] MEDS: GABAPENTIN 300 MG CAPSULE PO SCH ×3 (09:15→18:17)
[2017-03-29] MEDS: NEUTRA-PHOS 250 MG TABLET PO SCH ×2 (09:15→18:17)
[2017-03-29] MEDS: FOLIC ACID 1 MG TABLET PO SCH (09:16)
[2017-03-29] MEDS: MULTIVITAMIN TABLET PO SCH (09:16)
[2017-03-29] MEDS: SACCHAROMYCES BOULARDII 250 MG CAPSULE PO SCH ×2 (09:16→18:16)
[2017-03-29] MEDS: ASPIRIN EC 81 MG TABLET PO SCH (09:16)
[2017-03-29] MEDS: CYANOCOBALAMIN 500 MCG TABLET PO SCH (09:16)
[2017-03-29] MEDS: CHOLECALCIFEROL 1,000 UNIT TABLET PO SCH (09:16)
[2017-03-29] MEDS: POTASSIUM CHLORIDE 20 MEQ TABLET PO SCH (09:16)
[2017-03-29] MEDS: ENOXAPARIN 40 MG/0.4 ML SYRINGE SUBQ SCH (11:12)
[2017-03-29] MEDS: PIPERACILLIN/TAZOBACTAM 4.5 GM in SODIUM CHLORIDE 0.9% MINIBAG 100 ML IV SCH ×2 (11:12→17:31)
[2017-03-29] MEDS: FORMOTEROL FUMARATE NEB 20 MCG/2 ML INH SCH ×2 (11:30→19:50)
[2017-03-29] MEDS: IPRATROPIUM/ALBUTEROL 3 ML NEB INH SCH ×4 (11:30→21:00)
[2017-03-29] MEDS: BUDESONIDE 0.5 MG/2 ML NEB INH SCH ×2 (11:30→19:50)
[2017-03-29] MEDS: NORTRIPTYLINE 10 MG CAPSULE PO SCH (18:14)
[2017-03-29] MEDS: VANCOMYCIN INJ 1 GM in SODIUM CHLORIDE 0.9% 250 ML IV SCH (18:22)
[2017-03-29] MEDS: SENNA 8.6 MG TABLET PO SCH ×2 (18:45→21:00)
[2017-03-29] MEDS: ATORVASTATIN 40 MG TABLET PO SCH (21:44)
[2017-03-29] MEDS: METOPROLOL TARTRATE 50 MG TABLET PO SCH (21:44)
[2017-03-29] MEDS: risperiDONE 0.25 MG TABLET PO SCH (21:45)
[2017-03-29] MEDS: MIRTAZAPINE 15 MG TABLET PO SCH (21:46)
[2017-03-30] MEDS: methylPREDNISolone SUCCINATE 40 MG/ML VIAL IVP SCH ×2 (00:50→05:01)
[2017-03-30] MEDS: PIPERACILLIN/TAZOBACTAM 4.5 GM in SODIUM CHLORIDE 0.9% MINIBAG 100 ML IV SCH ×2 (00:50→05:02)
[2017-03-30] MEDS: SENNA 8.6 MG TABLET PO SCH ×2 (04:20→13:14)
[2017-03-30] MEDS: SODIUM CHLORIDE 0.9% 1,000 ML IV SCH (05:01)
[2017-03-30] MEDS: SODIUM CHLORIDE FLUSH 0.9% 10 ML SYRINGE IVP SCH (05:02)
[2017-03-30] MEDS: PANTOPRAZOLE 40 MG VIAL IVP SCH (06:30)
[2017-03-30] MEDS: VANCOMYCIN INJ 1 GM in SODIUM CHLORIDE 0.9% 250 ML IV SCH (06:30)
[2017-03-30] MEDS: SACCHAROMYCES BOULARDII 250 MG CAPSULE PO SCH ×2 (08:25→18:29)
[2017-03-30] MEDS: METOPROLOL TARTRATE 50 MG TABLET PO SCH ×2 (08:25→21:19)
[2017-03-30] MEDS: ASPIRIN EC 81 MG TABLET PO SCH (08:25)
[2017-03-30] MEDS: GABAPENTIN 300 MG CAPSULE PO SCH ×3 (08:25→18:27)
[2017-03-30] MEDS: FOLIC ACID 1 MG TABLET PO SCH (08:26)
[2017-03-30] MEDS: POTASSIUM CHLORIDE 20 MEQ TABLET PO SCH (08:26)
[2017-03-30] MEDS: CHOLECALCIFEROL 1,000 UNIT TABLET PO SCH (08:26)
[2017-03-30] MEDS: MULTIVITAMIN TABLET PO SCH (08:26)
[2017-03-30] MEDS: CYANOCOBALAMIN 500 MCG TABLET PO SCH (08:27)
[2017-03-30] MEDS: NEUTRA-PHOS 250 MG TABLET PO SCH ×2 (08:30→18:27)
[2017-03-30] MEDS: amLODIPine 5 MG TABLET PO SCH (09:45)
[2017-03-30] MEDS: ENOXAPARIN 40 MG/0.4 ML SYRINGE SUBQ SCH (09:45)
[2017-03-30] MEDS: BUDESONIDE 0.5 MG/2 ML NEB INH SCH ×2 (10:36→18:20)
[2017-03-30] MEDS ORDERED: MORPHINE SOL 10 MG/0.5 ML SYRINGE PO PRN (11:33)
[2017-03-30] MEDS ORDERED: ALBUTEROL NEB 2.5 MG/3 ML INH PRN (11:36)
[2017-03-30] MEDS: DOCUSATE SODIUM 250 MG CAPSULE PO SCH (13:14)
[2017-03-30] MEDS: LORazepam 1 MG/0.5 ML ORAL SYRINGE PO PRN ×2 (14:40→21:19)
[2017-03-30] MEDS: FORMOTEROL FUMARATE NEB 20 MCG/2 ML INH SCH ×2 (18:20→19:00)
[2017-03-30] MEDS: NORTRIPTYLINE 10 MG CAPSULE PO SCH (18:29)
[2017-03-30] MEDS ORDERED: NON FORMULARY MED (Fluticasone/Salmeterol [Advair 250-50 Diskus] 1 PUFFS) INH SCH (21:00)
[2017-03-30] MEDS: MIRTAZAPINE 15 MG TABLET PO SCH (21:19)
[2017-03-30] MEDS: risperiDONE 0.25 MG TABLET PO SCH (21:19)
[2017-03-30] MEDS: ATORVASTATIN 40 MG TABLET PO SCH (21:20)
[2017-03-30] MEDS: AMOX/CLAV 875 MG/125 MG TABLET PO SCH (21:20)
[2017-03-30] MEDS: IPRATROPIUM 0.2 MG/ML NEB INH SCH ×2 (22:52→22:59)
[2017-03-31] MEDS: BUDESONIDE 0.5 MG/2 ML NEB INH SCH (07:50)
[2017-03-31] MEDS: FORMOTEROL FUMARATE NEB 20 MCG/2 ML INH SCH (07:50)
[2017-03-31] MEDS: GABAPENTIN 300 MG CAPSULE PO SCH ×3 (09:19→17:09)
[2017-03-31] MEDS: AMOX/CLAV 875 MG/125 MG TABLET PO SCH ×2 (09:19→22:26)
[2017-03-31] MEDS: SODIUM CHLORIDE 0.9% 1,000 ML IV SCH ×7 (09:19→22:27)
[2017-03-31] MEDS: FOLIC ACID 1 MG TABLET PO SCH (09:19)
[2017-03-31] MEDS: CHOLECALCIFEROL 1,000 UNIT TABLET PO SCH (09:20)
[2017-03-31] MEDS: POTASSIUM CHLORIDE 20 MEQ TABLET PO SCH (09:20)
[2017-03-31] MEDS: ASPIRIN EC 81 MG TABLET PO SCH (09:20)
[2017-03-31] MEDS: CYANOCOBALAMIN 500 MCG TABLET PO SCH (09:20)
[2017-03-31] MEDS: NEUTRA-PHOS 250 MG TABLET PO SCH ×2 (09:20→17:09)
[2017-03-31] MEDS: MULTIVITAMIN TABLET PO SCH (09:20)
[2017-03-31] MEDS: SACCHAROMYCES BOULARDII 250 MG CAPSULE PO SCH ×2 (09:20→17:09)
[2017-03-31] MEDS: predniSONE 20 MG TABLET PO SCH (09:20)
[2017-03-31] MEDS: DOCUSATE SODIUM 250 MG CAPSULE PO SCH (09:20)
[2017-03-31] MEDS: METOPROLOL TARTRATE 50 MG TABLET PO SCH ×2 (09:22→22:26)
[2017-03-31] MEDS: amLODIPine 5 MG TABLET PO SCH (09:24)
[2017-03-31] MEDS: ENOXAPARIN 40 MG/0.4 ML SYRINGE SUBQ SCH (09:26)
[2017-03-31] MEDS ORDERED: MIN OIL/DIMETHICON/COCONUT OIL 92 GM TUBE TOP ONE (13:25)
[2017-03-31] MEDS: LORazepam 1 MG/0.5 ML ORAL SYRINGE PO PRN (17:07)
[2017-03-31] MEDS: NORTRIPTYLINE 10 MG CAPSULE PO SCH (17:09)
[2017-03-31] MEDS: ATORVASTATIN 40 MG TABLET PO SCH (22:26)
[2017-03-31] MEDS: MIRTAZAPINE 15 MG TABLET PO SCH (22:27)
[2017-03-31] MEDS: risperiDONE 0.25 MG TABLET PO SCH (22:27)
[2017-04-01] MEDS: BUDESONIDE 0.5 MG/2 ML NEB INH SCH ×2 (00:17→07:35)
[2017-04-01] MEDS: FORMOTEROL FUMARATE NEB 20 MCG/2 ML INH SCH ×2 (00:17→07:35)
[2017-04-01] MEDS: SODIUM CHLORIDE 0.9% 1,000 ML IV SCH ×2 (06:22→10:15)
[2017-04-01] MEDS: predniSONE 20 MG TABLET PO SCH (08:28)
[2017-04-01] MEDS: AMOX/CLAV 875 MG/125 MG TABLET PO SCH (08:28)
[2017-04-01] MEDS: METOPROLOL TARTRATE 50 MG TABLET PO SCH (08:29)
[2017-04-01] MEDS: MULTIVITAMIN TABLET PO SCH (08:32)
[2017-04-01] MEDS: POTASSIUM CHLORIDE 20 MEQ TABLET PO SCH (08:32)
[2017-04-01] MEDS: SACCHAROMYCES BOULARDII 250 MG CAPSULE PO SCH (08:33)
[2017-04-01] MEDS: NEUTRA-PHOS 250 MG TABLET PO SCH (08:33)
[2017-04-01] MEDS: ASPIRIN EC 81 MG TABLET PO SCH (08:33)
[2017-04-01] MEDS: amLODIPine 5 MG TABLET PO SCH (08:33)
[2017-04-01] MEDS: DOCUSATE SODIUM 250 MG CAPSULE PO SCH (08:33)
[2017-04-01] MEDS: FOLIC ACID 1 MG TABLET PO SCH (08:34)
[2017-04-01] MEDS: CHOLECALCIFEROL 1,000 UNIT TABLET PO SCH (08:34)
[2017-04-01] MEDS: GABAPENTIN 300 MG CAPSULE PO SCH ×2 (08:34→12:31)
[2017-04-01] MEDS: CYANOCOBALAMIN 500 MCG TABLET PO SCH (08:34)
[2017-04-01] MEDS: ENOXAPARIN 40 MG/0.4 ML SYRINGE SUBQ SCH (08:34)
== END 2017-04-01 16:40 | disposition hospice, inpatient (51) | DRG 871 ==
DX: J44.9 Chronic obstructive pulmonary disease, unspecified (principal); J96.20 Acute and chronic respiratory failure, unspecified whether with hypoxia or hypercapnia; A41.9 Sepsis, unspecified organism; J96.21 Acute and chronic respiratory failure with hypoxia; E78.00 Pure hypercholesterolemia, unspecified; J69.0 Pneumonitis due to inhalation of food and vomit; J18.9 Pneumonia, unspecified organism; M19.90 Unspecified osteoarthritis, unspecified site; J44.0 Chronic obstructive pulmonary disease with (acute) lower respiratory infection; J44.1 Chronic obstructive pulmonary disease with (acute) exacerbation; F01.50 Vascular dementia, unspecified severity, without behavioral disturbance, psychotic disturbance, mood disturbance, and anxiety; I25.10 Atherosclerotic heart disease of native coronary artery without angina pectoris; I10 Essential (primary) hypertension; E78.5 Hyperlipidemia, unspecified; K21.9 Gastro-esophageal reflux disease without esophagitis; I73.9 Peripheral vascular disease, unspecified; G62.9 Polyneuropathy, unspecified; F32.9 Major depressive disorder, single episode, unspecified; F41.9 Anxiety disorder, unspecified; R13.10 Dysphagia, unspecified; M54.9 Dorsalgia, unspecified; G89.29 Other chronic pain; M85.80 Other specified disorders of bone density and structure, unspecified site; G94 Other disorders of brain in diseases classified elsewhere; Z22.322 Carrier or suspected carrier of Methicillin resistant Staphylococcus aureus; Z79.51 Long term (current) use of inhaled steroids; Z79.82 Long term (current) use of aspirin; Z79.52 Long term (current) use of systemic steroids; Z79.899 Other long term (current) drug therapy; Z87.01 Personal history of pneumonia (recurrent); Z86.73 Personal history of transient ischemic attack (TIA), and cerebral infarction without residual deficits; Z95.5 Presence of coronary angioplasty implant and graft; Z95.828 Presence of other vascular implants and grafts; Z99.81 Dependence on supplemental oxygen; Z66 Do not resuscitate; Z87.891 Personal history of nicotine dependence